=== PATIENT | female | born 1935 | race Caucasian/White ===

== ENCOUNTER 2019-09-12 08:41 | Observation (INO) | payer MEDICARE, OTHER ==
[2019-09-12] MEDS ORDERED: MORPHINE SULFATE 4 MG/ML SYRINGE IV STA (08:55)
--- NOTE | 2019-09-12 08:57 | ED ---
General Adult HPI - General Chief complaint: Fall Stated complaint: FALL Time Seen by Provider: 09/12/19 08:43 Source: patient, EMS Mode of arrival: EMS Limitations: no limitations - History of Present Illness Initial comments: Dictation was produced using [employer] dictation software. please excuse any grammatical, word or spelling errors. Chief Complaint: 84-year-old female brought in by EMS for back pain after fall. History of Present Illness: Patient is a 84-year-old female she has past medical history of diabetes and hypertension. Patient states she slipped on the wet ground while pulling up her underwear. Patient states she fell backwards landing onto her coccyx. Patient complains of significant lower back pain. Patient denies any radiation of symptoms. States the pain is severe and sharp. She states worse with movement. Patient has any history of osteoporosis or compression fractures. Denies any numbness and paresthesias to the legs. Patient localizes symptoms to her mid slightly to the right lower back. The ROS documented in this emergency department record has been reviewed and confirmed by me. Those systems with pertinent positive or negative responses have been documented in the HPI. All other systems are other negative and/or noncontributory. PHYSICAL EXAM: General Impression: Alert and oriented x3, acute distress secondary to pain HEENT: Normocephalic atraumatic, extra-ocular movements intact, pupils equal and reactive to light bilaterally, mucous membranes moist. Cardiovascular: Heart regular rate and rhythm, S1&S2 audible, no murmurs, rubs or gallops Chest: Lungs clear to auscultation bilaterally, no rhonchi, no wheeze, no rales Abdomen: Bowel sounds present, abdomen soft, non-tender, non-distended, no organomegaly Musculoskeletal: Pulses present and equal in all extremities, no peripheral edema, extremity is ranged without any, occasions. Tenderness to palpation over the lumbar spinal region. No pain about the cervical spine. Motor: no focal deficits noted Neurological: CN II-XII grossly intact, no focal motor or sensory deficits noted Skin: Intact with no visualized rashes Psych: Normal affect and mood ED course: 84-year-old female presents with back pain after fall. Upon arrival are within acceptable limits. Given patient's age there is concern for compression fractures pressures other acute traumatic musculoskeletal injury. Patient given IV analgesia. Patient adamantly denies striking her head. Patient is mentating appropriately. She is not on any blood thinners. At this point we will withhold CT imaging of the brain or neck at this time.After evaluation obtained. Laboratory markers are within acceptable limits. There is a potassium 5.35 with hemolysis. Patient's potassium likely normal. CT chest abdomen pelvis was obtained given that patient had dramatic fall. No acute traumatic injuries noted. Patient was trialed on ambulation here in the emergency department. Patient did not tolerate ambulating. She lives at home by herself and does not have a good social situation. Given patient's inability to ambulate without consultations and social situation we will admit patient with spine surgery consultation. EKG interpretation: Ventricular rate 63, normal sinus rhythm,. Interval 194, care is 82, QTC 425. No SC prolongation, no QTC prolongation, no ST or T-wave changes noted. Overall, this EKG is unremarkable - Related Data Home Medications Medication Instructions Recorded Confirmed Bisoprol/Hydrochlorothiazide 1 tab PO DAILY 09/12/19 09/12/19 [Bisoprolol-Hctz 10-6.25 mg Tab] Pioglitazone HCl 30 mg PO DAILY 09/12/19 09/12/19 Simvastatin 40 mg PO HS 09/12/19 09/12/19 amLODIPine BESYLATE/BENAZEPRIL 1 cap PO BID 09/12/19 09/12/19 [amLODIPine BESYLATE/BENAZEPRIL 5-20 MG] metFORMIN HCL 1,000 mg PO BID 09/12/19 09/12/19 Allergies Allergy/AdvReac Type Severity Reaction Status Date / Time Sulfa (Sulfonamide Allergy Swelling Verified 09/12/19 08:47 Antibiotics) Review of Systems ROS Statement: Those systems with pertinent positive or pertinent negative responses have been documented in the HPI. ROS Other: All systems not noted in ROS Statement are negative. Past Medical History Past Medical History: Diabetes Mellitus, Hypertension History of Any Multi-Drug Resistant Organisms: None Reported Past Psychological History: No Psychological Hx Reported Smoking Status: Former smoker Past Alcohol Use History: None Reported Past Drug Use History: None Reported General Exam Limitations: no limitations Course Vital Signs 09/12/19 09/12/19 08:47 11:19 Temperature 97.9 F Pulse Rate 58 L 64 Respiratory 18 18 Rate Blood Pressure 143/69 161/52 O2 Sat by Pulse 99 98 Oximetry Medical Decision Making - Lab Data Result diagrams: 09/12/19 09:24 09/12/19 09:24 Lab Results 09/12/19 09/12/19 09/12/19 Range/Units 09:24 09:24 09:24 WBC 9.4 (3.8-10.6) k/uL RBC 3.57 L (3.80-5.40) m/uL Hgb 10.5 L (11.4-16.0) gm/dL Hct 32.8 L (34.0-46.0) % MCV 91.6 (80.0-100.0) fL MCH 29.4 (25.0-35.0) pg MCHC 32.1 (31.0-37.0) g/dL RDW 13.9 (11.5-15.5) % Plt Count 314 (150-450) k/uL Neutrophils % 75 % Lymphocytes % 14 % Monocytes % 8 % Eosinophils % 1 % Basophils % 0 % Neutrophils # 7.0 (1.3-7.7) k/uL Lymphocytes # 1.3 (1.0-4.8) k/uL Monocytes # 0.7 (0-1.0) k/uL Eosinophils # 0.1 (0-0.7) k/uL Basophils # 0.0 (0-0.2) k/uL PT 10.0 (9.0-12.0) sec INR 0.9 (<1.2) APTT 23.5 (22.0-30.0) sec Sodium 136 L (137-145) mmol/L Potassium 5.3 H (3.5-5.1) mmol/L Chloride 106 (98-107) mmol/L Carbon Dioxide 21 L (22-30) mmol/L Anion Gap 9 mmol/L BUN 35 H (7-17) mg/dL Creatinine 1.08 H (0.52-1.04) mg/dL Est GFR (CKD-EPI)AfAm 55 (>60 ml/min/1.73 sqM) Est GFR (CKD-EPI)NonAf 48 (>60 ml/min/1.73 sqM) Glucose 185 H (74-99) mg/dL Calcium 9.4 (8.4-10.2) mg/dL Disposition Clinical Impression: Fall, Back strain Disposition: ADMITTED IP TO THIS HOSP Condition: Fair Referrals: None,Stated [Primary Care Provider] - 1-2 days Decision Time: 12:30
[2019-09-12 09:43] LABS: Basophils % (A) 0 %; Eosinophils # (A) 0.1 k/uL (0-0.7); Eosinophils % (A) 1 %; HCT 32.8 % (34.0-46.0); HGB 10.5 gm/dL (11.4-16.0); Lymphocytes # (A) 1.3 k/uL (1.0-4.8); Lymphocytes % (A) 14 %; MCH 29.4 pg (25.0-35.0); MCHC 32.1 g/dL (31.0-37.0); MCV 91.6 fL (80.0-100.0); Mean Platelet Volume 6.1; Monocytes # (A) 0.7 k/uL (0-1.0); Monocytes % (A) 8 %; Neutrophils % (A) 75 %; Platelet Count 314 k/uL (150-450); RBC 3.57 m/uL (3.80-5.40); RDW 13.9 % (11.5-15.5); WBC 9.4 k/uL (3.8-10.6)
[2019-09-12 09:53] LABS: INR 0.9 (<1.2); Partial Thromboplastin Time 23.5 sec (22.0-30.0)
[2019-09-12 10:11] LABS: Calcium 9.4 mg/dL (8.4-10.2); Potassium 5.3 mmol/L (3.5-5.1)
[2019-09-12] MEDS ORDERED: HYDROmorphone 0.5 MG/0.5 ML SYRINGE IVP STA (11:12)
--- NOTE | 2019-09-12 11:36 | CT ---
EXAMINATION TYPE: CT ChestAbdPelvis wo con DATE OF EXAM: 09/12/2019 INDICATION: Fall with back pain. COMPARISON: None CT DLP: 1228.8 mGycm CONTRAST: Performed without Oral Contrast, no intravenous contrast. TECHNIQUE: Axial images at 5 mm thick sections. Reconstructed images in the coronal plane. Delayed images through the kidneys. FINDINGS: CT CHEST: There is a 2.7 cm hypodensity extending from the inferior lateral right lobe thyroid into the superio r mediastinum. This could be further evaluated with ultrasound. No suspicious lung nodules or focal infiltrates are present. Some minimal compressive atelectasis med ially in the right lung base. No enlarged mediastinal or hilar adenopathy is evident. The ascending aorta diameter at the level of the main pulmonary artery is 3.7 cm. The main pulmonary artery diameter at the bifurcation is 2.8 cm. Coronary artery calcification is present. CT ABDOMEN: Liver: Normal Spleen: Normal Pancreas: Atrophic Adrenal glands: The adrenal glands are normal. Gallbladder: Normal Kidneys: No masses are evident. No hydronephrosis is present. No cysts are present. No renal stone s are evident. Aorta: Vascular calcification is within the aorta. Inferior vena cava: Normal. CT PELVIS: Scattered diverticuli are through the colon. No suspicious acute diverticulitis is evident. Studies w ithout oral contrast limiting bowel evaluation. Appendix: Normal as visualized. Urinary bladder: Compressive limited evaluation. Genitourinary structures: Uterus is not identified. No adnexal masses are evident. Osseous structures: No suspicious lytic or sclerotic lesions. Facet hypertrophy is present. Vertebral body heights are preserved. Disc heights appear preserved. Some minimal vacuum phenomenon is in the anterior mid thoracic levels. IMPRESSIONS: 1. Diverticulosis without acute diverticulitis. 2. No suspicious osseous abnormality.
--- NOTE | 2019-09-12 12:17 | XR ---
EXAMINATION TYPE: XR chest 1V portable DATE OF EXAM: 09/12/2019 COMPARISON: NONE HISTORY: Pain TECHNIQUE: Single frontal view of the chest is obtained. FINDINGS: Heart is prominent is atherosclerotic change aorta. No pneumothorax or overt failure. No c onsolidative process. No pleural effusion. Osteopenia of the osseous structures noted. Correlate for COPD. IMPRESSION: No definite acute process
[2019-09-12] MEDS ORDERED: Acetaminophen-Codeine 300-30mg TAB PO PRN (12:27)
[2019-09-12] MEDS ORDERED: NALOXONE 0.4 MG/ML 1 ML VIAL IV PRN (12:27)
[2019-09-12] MEDS ORDERED: KETOROLAC 30 MG/ML 1 ML VIAL IVP STA (14:25)
[2019-09-12] MEDS ORDERED: ONDANSETRON 4 MG/2 ML VIAL IVP STA (14:26)
[2019-09-12] MEDS ORDERED: ACETAMINOPHEN TAB 325 MG TAB PO PRN (15:25)
[2019-09-12] MEDS ORDERED: MORPHINE SULFATE 2 MG/ML SYRINGE IV PRN (15:25)
[2019-09-12] MEDS ORDERED: traMADol 50 MG TAB PO PRN (15:25)
--- NOTE | 2019-09-12 15:32 | P.HPIM ---
History of Present Illness H&P Date: 09/12/19 Chief Complaint: Lower back pain 84-year-old female with PMH of hypertension, diabetes mellitus, dyslipidemia presents to the ED after a fall. Patient states that she woke up around 7 AM, made her way to the washroom, slipped in the bathroom as there was water on the floor, twisted and landed on her buttocks. Her was able to hear the fall and attended to the patient. Patient was unable to get up largely due to the pain. EMS was called for further evaluation. Patient reports that typically she is able to ambulate without any assistive devices. She has no i ssues taking care of her ADLs and IADLs. She does report some difficulty with stairs but is able to walk upstairs while taking her time. She currently complains of right-sided lower back pain. Pain is stabbing in nature. Pain is 8 out of 10 in severity. Pain does not radiate. There are no alleviating or aggravating factors. Patient also reports nausea but denies any vomiting. She denies any headache, lower extremity edema, fever or chills, cough, chest pain, shortness of breath, changes in urination or bowel habits. No changes in appetite or weight. Patient denies any dizziness, numbness/weakness/tingling of the extremities. She denies any syncopal episodes. She denies any bladder or bowel incontinence. She denies any saddle anesthesia. In the ED, her vital signs were stable. CBC showed hemoglobin 10.5. CMP showed sodium 136, potassium 5.3, bicarbonate 21, BUN 35, creatinine 1.08. Chest x-ray was negative. CT of the chest abdomen and pelvis was performed which showed a 2.7 cm hypodensity in the right lobe of the thyroid. No fractures were seen. Patient is admitted for pain control and PT evaluation. Review of Systems Pertinent positives and negatives as discussed in HPI, a complete review of systems was performed and all other systems are negative. Past Medical History Past Medical History: Diabetes Mellitus, Hypertension History of Any Multi-Drug Resistant Organisms: None Reported Past Psychological History: No Psychological Hx Reported Smoking Status: Former smoker Past Alcohol Use History: None Reported Past Drug Use History: None Reported Medications and Allergies Home Medications Medication Instructions Recorded Confirmed Type Bisoprol/Hydrochlorothiazide 1 tab PO DAILY 09/12/19 09/12/19 History [Bisoprolol-Hctz 10-6.25 mg Tab] Pioglitazone HCl 30 mg PO DAILY 09/12/19 09/12/19 History Simvastatin 40 mg PO HS 09/12/19 09/12/19 History amLODIPine BESYLATE/BENAZEPRIL 1 cap PO BID 09/12/19 09/12/19 History [amLODIPine BESYLATE/BENAZEPRIL 5-20 MG] metFORMIN HCL 1,000 mg PO BID 09/12/19 09/12/19 History Allergies Allergy/AdvReac Type Severity Reaction Status Date / Time Sulfa (Sulfonamide Allergy Swelling Verified 09/12/19 08:47 Antibiotics) Physical Exam Vitals: Vital Signs Temp Pulse Resp BP Pulse Ox 09/12/19 11:19 64 18 161/52 98 09/12/19 08:47 97.9 F 58 L 18 143/69 99 Intake and Output 09/12/19 09/12/19 09/12/19 06:59 14:59 22:59 Other: Weight 117.934 kg General: [non toxic], [no distress], [appears at stated age] Derm: [warm], [dry] Head: [atraumatic], [normocephalic], [symmetric] Eyes: [EOMI], [no lid lag], [anicteric sclera] Mouth: [no lip lesion], [mucus membranes moist] Cardiovascular: [S1S2 reg], [no murmur], [positive DP pulse bilateral], Lungs: [CTA bilateral], [no rhonchi, no rales] , [no accessory muscle use] Abdominal: [soft], [ nontender to palpation], [no guarding], [no appreciable organomegaly] Ext: [no gross muscle atrophy], [2+ bilateral lower extremity edema], [no contractures], [tenderness to palpation of the right paraspinal muscles, no midline tenderness, SLR negative] Neuro: [ CN II-XI grossly intact], [no focal neuro deficits] Psych: [Alert], [oriented], [appropriate affect] Results CBC & Chem 7: 09/12/19 09:24 09/12/19 09:24 Labs: Abnormal Lab Results - Last 24 Hours (Table) 09/12/19 09/12/19 Range/Units 09:24 09:24 RBC 3.57 L (3.80-5.40) m/uL Hgb 10.5 L (11.4-16.0) gm/dL Hct 32.8 L (34.0-46.0) % Sodium 136 L (137-145) mmol/L Potassium 5.3 H (3.5-5.1) mmol/L Carbon Dioxide 21 L (22-30) mmol/L BUN 35 H (7-17) mg/dL Creatinine 1.08 H (0.52-1.04) mg/dL Glucose 185 H (74-99) mg/dL Assessment and Plan Assessment: Assessment and plan Intractable back pain due to mechanical fall Hyperkalemia Acute kidney injury Diabetes mellitus with hyperglycemia Obesity with BMI 50.8 Chronic conditions: Hypertension, dyslipidemia CT shows no acute fracture. Plans: Pain control with Tylenol, tramadol, morphine as needed for severe pain. Fall precautions. Follow PT and OT recommendations. Follow orthopedic recommendations. Follow pain management recommendations. Potassium 5.3, heparinized plasma specimen. EKG shows no T-wave changes. Plans: Repeat BMP in the morning. BUN 35, creatinine 1.08. Likely due to dehydration. Plans: Encourage hydration by mouth. Will discontinue Toradol. Avoid nephrotoxins. Repeat BMP in the morning. Fthvp-sm-poly glucose 185. Plans: Discontinue oral hypoglycemics. Insulin sliding scale. Regular Accu-Cheks. Hypoglycemic precautions. Contributing to back pain. Plans: Structured weight loss program. DVT prophylaxis: [SCD boots] Discussed with: [Patient and family] Anticipated discharge: [1-2 days] Anticipated discharge place: [Home] A total of [45] minutes was spent on the care of this complex patient more than 50% of the time was spent in counseling and care coordination. Patient names her Don decision-maker in the case that she can't make decisions for herself. Patient reiterates wanting to remain full code at this time.
[2019-09-12 20:31] LABS: Glucose,Whole Blood 175 mg/dL (75-99)
[2019-09-12] MEDS: SODIUM CHLORIDE 0.9% 1,000 ML IV SCH (20:45)
[2019-09-12] MEDS ORDERED: metFORMIN 500 MG TAB PO SCH (21:00)
[2019-09-12] MEDS: INSULIN ASPART (NovoLOG) 100 UNIT/ML VIAL SQ SCH ×2 (21:00→21:27)
[2019-09-12] MEDS: LISINOPRIL 20 MG TAB PO SCH (21:02)
[2019-09-12] MEDS: ATORVASTATIN 20 MG TAB PO SCH (21:03)
[2019-09-12] MEDS: amLODIPine 5 MG TAB PO SCH (21:03)
[2019-09-13 01:58] LABS: Glucose,Whole Blood 111 mg/dL (75-99)
[2019-09-13 07:21] LABS: Glucose,Whole Blood 125 mg/dL (75-99)
[2019-09-13] MEDS: INSULIN ASPART (NovoLOG) 100 UNIT/ML VIAL SQ SCH ×4 (08:09→20:55)
[2019-09-13] MEDS: BISOPROLOL-HCTZ 10-6.25 MG 1 EACH TAB PO SCH (08:45)
[2019-09-13] MEDS: LISINOPRIL 20 MG TAB PO SCH ×2 (08:45→21:02)
[2019-09-13] MEDS: ASPIRIN 81 MG PO SCH (08:45)
[2019-09-13] MEDS: amLODIPine 5 MG TAB PO SCH ×2 (08:45→21:01)
--- NOTE | 2019-09-13 08:58 | P.CNOR ---
History of Present Illness - [facility] Consult date: 09/13/19 Requesting physician: Fidel Corral Consult reason: low back pain (Acute low back pain status post fall) History of present illness: Patient is very pleasant 84-year-old female who is seen and examined at bedside for acute intractable low back pain status post fall. She was at home yesterday getting dressed in the bathroom when she slipped twisting and landing on her buttocks. Since that time she has had increased low back pain. She denies any lower extremity weakness and radiculopathy bilaterally. At the time of her fall she was unable to get off the floor due to her pain. EMS was called and she was transferred to the hospital. CT imaging did not show evidence of fracture or acute change in regards to her lumbar spine. Consultation was placed with orthopedic spine as well as pain management. Patient states at the bedside she does not feel she needs any sort of surgical intervention at her lumbar spine but would like treatment with pain management as well as physical therapy. She does have a past medical history which includes diabetes mellitus, hypertension, and obesity. Past Medical History Past Medical History: Diabetes Mellitus, Hypertension History of Any Multi-Drug Resistant Organisms: None Reported Past Psychological History: No Psychological Hx Reported Smoking Status: Former smoker Past Alcohol Use History: None Reported Past Drug Use History: None Reported Medications and Allergies Home Medications Medication Instructions Recorded Confirmed Type Bisoprol/Hydrochlorothiazide 1 tab PO DAILY 09/12/19 09/12/19 History [Bisoprolol-Hctz 10-6.25 mg Tab] Pioglitazone HCl 30 mg PO DAILY 09/12/19 09/12/19 History Simvastatin 40 mg PO HS 09/12/19 09/12/19 History amLODIPine BESYLATE/BENAZEPRIL 1 cap PO BID 09/12/19 09/12/19 History [amLODIPine BESYLATE/BENAZEPRIL 5-20 MG] metFORMIN HCL 1,000 mg PO BID 09/12/19 09/12/19 History Allergies Allergy/AdvReac Type Severity Reaction Status Date / Time Sulfa (Sulfonamide Allergy Swelling Verified 09/12/19 08:47 Antibiotics) Physical Examination Physical exam: Patient is awake, alert, and oriented 3 Vital signs stable Good chest excursion with deep inspiration and expiration Abdomen soft nontender Examination of lumbar spine reveals skin is intact with no abrasions, lacerations, or bruises; no erythema, purulence or signs of infection Pain with palpation over the lumbar paraspinal muscles bilaterally Dorsiflexion, plantarflexion, and extensor hallucis longus positive sustained bilaterally Lower extremity strength 5/5 bilaterally Patient is able to lift her legs off the bed independently but somewhat slowly No lower extremity hyperreflexia bilaterally No signs or symptoms of DVT; no calf pain No pain with internal and external rotation of the hips bilaterally Neurovascularly intact Results Pertinent studies: CT of the chest/abdomen/pelvis taken on 09/12/2019: No suspicious osseous abnormality; no evidence of vertebral body compression fracture deformity; inte rvertebral disc heights appear to be well preserved; facet hypertrophy; overall alignment is adequately maintained; no obvious spondylolisthesis; diverticulosis without acute diverticulitis - Labs Labs: Abnormal Lab Results - Last 24 Hours (Table) 09/12/19 09/12/19 09/12/19 Range/Units 09:24 09:24 20:30 RBC 3.57 L (3.80-5.40) m/uL Hgb 10.5 L (11.4-16.0) gm/dL Hct 32.8 L (34.0-46.0) % Sodium 136 L (137-145) mmol/L Potassium 5.3 H (3.5-5.1) mmol/L Carbon Dioxide 21 L (22-30) mmol/L BUN 35 H (7-17) mg/dL Creatinine 1.08 H (0.52-1.04) mg/dL Glucose 185 H (74-99) mg/dL POC Glucose (mg/dL) 175 H (75-99) mg/dL 09/13/19 09/13/19 Range/Units 01:56 07:19 RBC (3.80-5.40) m/uL Hgb (11.4-16.0) gm/dL Hct (34.0-46.0) % Sodium (137-145) mmol/L Potassium (3.5-5.1) mmol/L Carbon Dioxide (22-30) mmol/L BUN (7-17) mg/dL Creatinine (0.52-1.04) mg/dL Glucose (74-99) mg/dL POC Glucose (mg/dL) 111 H 125 H (75-99) mg/dL H & H 09/12/19 Range/Units 09:24 Hgb 10.5 L (11.4-16.0) gm/dL Hct 32.8 L (34.0-46.0) % Coagulation 09/12/19 Range/Units 09:24 INR 0.9 (<1.2) Result Diagrams: 09/12/19 09:24 09/12/19 09:24 Assessment and Plan Assessment: Assessment: Intractable low back pain status post fall Lumbar strain Difficulty with mobility and ambulation due to pain Lumbar facet arthropathy History of diabetes mellitus, hypertension, and obesity (1) Intractable low back pain Current Visit: Yes Status: Acute Code(s): M54.5 - LOW BACK PAIN SNOMED Code(s): 56667273758807203 (2) Status post fall Current Visit: Yes Status: Acute Code(s): Z91.81 - HISTORY OF FALLING SNOMED Code(s): 031056410 (3) Lumbar strain Current Visit: Yes Status: Acute Code(s): S39.012A - STRAIN OF MUSCLE, FASCIA AND TENDON OF LOWER BACK, INIT SNOMED Code(s): 543451270 (4) Lumbar facet arthropathy Current Visit: Yes Status: Acute Code(s): M47.816 - SPONDYLOSIS W/O MYELOPATHY OR RADICULOPATHY, LUMBAR REGION SNOMED Code(s): 013066414 (5) History of diabetes mellitus Current Visit: Yes Status: Acute Code(s): Z86.39 - PERSONAL HISTORY OF ENDO, NUTRITIONAL AND METABOLIC DISEASE SNOMED Code(s): 642363515 (6) History of hypertension Current Visit: Yes Status: Acute Code(s): Z86.79 - PERSONAL HISTORY OF OTHER DISEASES OF THE CIRCULATORY SYSTEM SNOMED Code(s): 945540918 (7) Obesity Current Visit: Yes Status: Acute Code(s): E66.9 - OBESITY, UNSPECIFIED SNOMED Code(s): 456075492 Plan: Plan: 1. After physical examination the patient, reviewing imaging, and further discussion with the patient, we will currently planned to continue conservative treatment at this time. Reviewing the imaging does not show evidence of fracture or obvious significant findings. Patient denies any lower extremity weakness radiculopathy bilaterally. She is eating and voiding without difficulty. She is not experiencing any abdominal pain. She experienced a twisting motion at the time of fall landing on her buttocks and has had increased low back pain since that time. I do feel she could benefit with physical therapy as well as with pain management. Consultation has been placed with pain management. At this time are not currently planning for any surgical intervention at her lumbar spine. Patient states she would like to exhaust all conservative treatment options and is not wish to have any surgical intervention at her spine. We discussed we do not currently feels there are any indications which surgical intervention would provide any significant improvement of her symptoms. We recommended conservative treatment. At this time, patient will be cleared for discharge from an orthopedic spine standpoint. We will plan have her follow up in outpatient setting on as-needed basis with Cornelio Jamison PA-C or Dr. Miguel Navarro at [facility]. 2. Patient will continue to be seen and examined other medical providers including medicine 3. Patient may work with physical therapy to increase mobility and ambulation 4. Patient currently waiting for consultation with pain management. Time with Patient: Greater than 30 (Including obtaining history, physical examination, reviewing of imaging, and dictation.)
[2019-09-13] MEDS ORDERED: PIOGLITAZONE 30 MG TAB PO SCH (09:00)
[2019-09-13 11:42] LABS: Glucose,Whole Blood 164 mg/dL (75-99)
--- NOTE | 2019-09-13 13:29 | P.PN ---
Subjective Progress Note Date: 09/13/19 Principal diagnosis: Back pain Patient was seen and examined. No acute events overnight. Patient continues to report right-sided back pain without any radiation. Pain is 6 out of 10 in severity. Patient states tramadol has not helped her. States that she was able to ambulate with PT and OT down the hallway into the washroom with the aid of a walker but continues to have fears of falling down. States that her is elderly and will be unable to help. She denies any chest, shortness of breath or palpitations. No nausea or vomiting. No fever or chills. Family at bedside. Objective - Vital Signs Vital signs: Vital Signs Temp 97.8 F 09/13/19 13:00 Pulse 59 L 09/13/19 13:00 Resp 16 09/13/19 13:00 BP 158/70 09/13/19 13:00 Pulse Ox 92 L 09/13/19 04:31 Intake & Output 09/12/19 09/13/19 09/13/19 18:59 06:59 18:59 Intake Total 1010 Balance 1010 Weight 117.934 kg Intake: Intake, IV Titration 0 Amount Sodium Chloride 0.9% 1, 0 000 ml @ 20 mls/hr IV . Q24H [facility] Rx#:[id number] Oral 1010 Other: Voiding Method Bedpan Bedpan # Voids 1 1 - Exam General: [non toxic], [no distress], [appears at stated age] Derm: [warm], [dry] Head: [atraumatic], [normocephalic], [symmetric] Eyes: [EOMI], [no lid lag], [anicteric sclera] Mouth: [no lip lesion], [mucus membranes moist] Cardiovascular: [S1S2 reg], [no murmur], [positive DP pulse bilateral], Lungs: [CTA bilateral], [no rhonchi, no rales] , [no accessory muscle use] Abdominal: [soft], [ nontender to palpation], [no guarding], [no appreciable organomegaly] Ext: [no gross muscle atrophy], [2+ bilateral lower extremity edema], [no contractures], [tenderness to palpation of the right paraspinal muscles, no midline tenderness, SLR negative] Neuro: [ CN II-XI grossly intact], [no focal neuro deficits] Psych: [Alert], [oriented], [appropriate affect] - Labs CBC & Chem 7: 09/12/19 09:24 09/12/19 09:24 Labs: Abnormal Lab Results - Last 24 Hours (Table) 09/12/19 09/13/19 09/13/19 Range/Units 20:30 01:56 07:19 POC Glucose (mg/dL) 175 H 111 H 125 H (75-99) mg/dL 09/13/19 Range/Units 11:30 POC Glucose (mg/dL) 164 H (75-99) mg/dL Assessment and Plan Assessment: Assessment and plan Intractable back pain due to mechanical fall Hyperkalemia Acute kidney injury Diabetes mellitus with hyperglycemia Obesity with BMI 50.8 Chronic conditions: Hypertension, dyslipidemia CT shows no acute fracture. Orthopedic surgery recommends no surgical intervention. Plans: Pain control with [place] as needed since tramadol has not helped. Fall precautions. Follow PT and OT recommendations. Follow pain management recommendations. Potassium 5.3, heparinized plasma specimen. EKG shows no T-wave changes. Plans: Repeat BMP in the morning. BUN 35, creatinine 1.08. Likely due to dehydration. Plans: Encourage hydration by mouth. Will discontinue Toradol. Avoid nephrotoxins. Repeat BMP in the morning. [id number]-[id number] glucose 164. Plans: Discontinue oral hypoglycemics. Insulin sliding scale. Regular Accu-Cheks. Hypoglycemic precautions. Contributing to back pain. Plans: Structured weight loss program. [Patient continues to have back pain that is uncontrolled with difficulty ambulating. Her medication has been changed from tramadol to [place]. We will see if that helps her. Likely DC today or tomorrow depending on her progress.]
[2019-09-13 15:24] LABS: Calcium 9.6 mg/dL (8.4-10.2); Potassium 5.5 mmol/L (3.5-5.1)
[2019-09-13 18:07] LABS: Glucose,Whole Blood 161 mg/dL (75-99)
[2019-09-13] MEDS: SODIUM CHLORIDE 0.9% 1,000 ML IV SCH (19:18)
[2019-09-13] MEDS ORDERED: ONDANSETRON 4 MG/2 ML VIAL IVP PRN (20:11)
[2019-09-13 20:22] LABS: Glucose,Whole Blood 143 mg/dL (75-99)
[2019-09-13] MEDS: HYDROcodone/APAP 5-325MG 1 EACH TAB PO PRN (21:01)
[2019-09-13] MEDS: ATORVASTATIN 20 MG TAB PO SCH (21:01)
[2019-09-14] MEDS: HYDROcodone/APAP 5-325MG 1 EACH TAB PO PRN ×2 (02:20→15:52)
[2019-09-14 02:41] LABS: Glucose,Whole Blood 144 mg/dL (75-99)
[2019-09-14 05:34] VITALS: BP 177/72; PULSE 60; RESP 16; TEMP 97.1
[2019-09-14 07:59] LABS: Glucose,Whole Blood 140 mg/dL (75-99)
[2019-09-14] MEDS: INSULIN ASPART (NovoLOG) 100 UNIT/ML VIAL SQ SCH ×2 (08:11→12:55)
[2019-09-14] MEDS: LISINOPRIL 20 MG TAB PO SCH (08:11)
[2019-09-14] MEDS: BISOPROLOL-HCTZ 10-6.25 MG 1 EACH TAB PO SCH (08:11)
[2019-09-14] MEDS: amLODIPine 5 MG TAB PO SCH (08:11)
[2019-09-14] MEDS: ASPIRIN 81 MG PO SCH (08:12)
[2019-09-14] MEDS ORDERED: INSULIN REGULAR 100 UNIT/ML VIAL IV ONE (08:22)
[2019-09-14] MEDS ORDERED: DEXTROSE 10 % IN WATER 250 ML IV ONE (08:28)
--- NOTE | 2019-09-14 08:48 | P.DS ---
Providers Date of admission: 09/12/19 12:27 Expected date of discharge: 09/14/19 Attending physician: Jessy Santos MD Consults: 09/12/19 12:28 Consult Physician Routine Consulting Provider: Shu Navarro Consult Reason/Comments: back pain Do you want consulting provider notified?: Yes 09/12/19 15:24 Consult Physician Routine Consulting Provider: Jose Hoffmann Consult Reason/Comments: back pain Do you want consulting provider notified?: Yes Primary care physician: Stated None Hospital Course: 84-year-old female with PMH of hypertension, diabetes mellitus, dyslipidemia presents to the ED after a fall. Patient states that she woke up around 7 AM, made her way to the washroom, slipped in the bathroom as there was water on the floor, twisted and landed on her buttocks. Her was able to hear the fall and attended to the patient. Patient was unable to get up largely due to the pain. EMS was called for further evaluation. Patient reports that ty pically she is able to ambulate without any assistive devices. She has no issues taking care of her ADLs and IADLs. She does report some difficulty with stairs but is able to walk upstairs while taking her time. She currently complains of right-sided lower back pain. Pain is stabbing in nature. Pain is 8 out of 10 in severity. Pain does not radiate. There are no alleviating or aggravating factors. Patient also reports nausea but denies any vomiting. She denies any headache, lower extremity edema, fever or chills, cough, chest pain, shortness of breath, changes in urination or bowel habits. No changes in appetite or weight. Patient denies any dizziness, numbness/weakness/tingling of the extremities. She denies any syncopal episodes. She denies any bladder or bowel incontinence. She denies any saddle anesthesia. In the ED, her vital signs were stable. CBC showed hemoglobin 10.5. CMP showed sodium 136, potassium 5.3, bicarbonate 21, BUN 35, creatinine 1.08. Chest x-ray was negative. CT of the chest abdomen and pelvis was performed which showed a 2.7 cm hypodensity in the right lobe of the thyroid. No fractures were seen. Patient is admitted for pain control and PT evaluation. Patient was evaluated by orthopedic surgery and no surgical intervention was recommended. Pain management was consulted but did not see the patient during her hospitalization. Her pain was initially attempted to be controlled with tramadol but patient continued to feel pain so medications were switched to [place]. PT was consulted and worked with the patient during her hospitalization. She was given a prescription for a rolling walker. Patient was noted to have a persistently elevated potassium of 5.3 on admission. Repeat BMP showed potassium of 5.5. She was given D 25 with insulin to bring down her potassium. Repeat BMP was drawn prior to discharge to show normalized potassium. Patient was seen and examined. No acute events overnight. Patient continues to report right-sided back pain, described as sore in nature, 5 out of 10 in severity. States that [place] has helped her. She has been ambulating to the washroom in the hallways with the aid of a rolling walker. Patient states that she is comfortable going home today. She denies any chest pain, shortness of breath or palpitations. No nausea or vomiting. No fever or chills. She denies any bladder or bowel incontinence. No saddle anesthesia. General: [non toxic], [no distress], [appears at stated age] Derm: [warm], [dry] Head: [atraumatic], [normocephalic], [symmetric] Eyes: [EOMI], [no lid lag], [anicteric sclera] Mouth: [no lip lesion], [mucus membranes moist] Cardiovascular: [S1S2 reg], [no murmur], [positive DP pulse bilateral], Lungs: [CTA bilateral], [no rhonchi, no rales] , [no accessory muscle use] Abdominal: [soft], [ nontender to palpation], [no guarding], [no appreciable organomegaly] Ext: [no gross muscle atrophy], [2+ bilateral lower extremity edema], [no con tractures], [tenderness to palpation of the right paraspinal muscles, no midline tenderness, improved] Neuro: [no focal neuro deficits] Psych: [Alert], [oriented], [appropriate affect] Assessment and plan Intractable back pain due to mechanical fall Hyperkalemia Acute kidney injury Diabetes mellitus with hyperglycemia Hypertension Obesity with BMI 50.8 Chronic conditions: dyslipidemia CT shows no acute fracture. Orthopedic surgery recommends no surgical intervention. Plans: Pain control with [place]. Fall precautions. Follow PT and OT recommendations. Follow pain management recommendations. Potassium 5.5. EKG shows no T-wave changes. Plans: 10 units of insulin IV along with D 10. Follow EKG. Repeat BMP to show normal potassium prior to discharge. Will discontinue SIMBA inhibitor, to be resumed with PCP. BUN 35-36, creatinine 1.08-1.32. Likely due to dehydration. Plans: Encourage hydration by mouth. Will discontinue Toradol. Avoid nephrotoxins. Repeat BMP in the morning. [id number] glucose 140. Plans: Discontinue oral hypoglycemics. Insulin sliding scale. Regular Accu-Cheks. Hypoglycemic precautions. Contributing to back pain. Plans: Structured weight loss program. BP 177/72. Plans: Continue amlodipine and bisoprolol. Continue hydrochlorothiazide. Discontinue lisinopril due to hyperkalemia. [Patient's symptoms have improved since admission. Patient appears comfortable going home with aid of a rolling walker. Prescription for rolling walker needs to be signed. Patient is being treated for hyperkalemia repeat BMP in the afternoon. Discharge patient home if potassium normal. Repeat BMP in 3 days. ] Pertinent Studies: CT chest abdomen and pelvis, chest x-ray Patient Condition at Discharge: Stable Plan - Discharge Summary Discharge Rx Participant: Yes New Discharge Prescriptions: New Aspirin 81 mg PO DAILY #30 chew HYDROcodone/APAP 5-325MG [[place] 5-325] 1 each PO Q4HR PRN #18 tab PRN Reason: Pain amLODIPine [Norvasc] 5 mg PO BID #60 tab Continue Bisoprol/Hydrochlorothiazide [Bisoprolol-Hctz 10-6.25 mg Tab] 1 tab PO DAILY metFORMIN HCL 1,000 mg PO BID Simvastatin 40 mg PO HS Pioglitazone HCl 30 mg PO DAILY Discontinued amLODIPine BESYLATE/BENAZEPRIL [amLODIPine BESYLATE/BENAZEPRIL 5-20 MG] 1 cap PO BID Discharge Medication List Bisoprol/Hydrochlorothiazide [Bisoprolol-Hctz 10-6.25 mg Tab] 1 tab PO DAILY 09/12/19 [History] Pioglitazone HCl 30 mg PO DAILY 09/12/19 [History] Simvastatin 40 mg PO HS 09/12/19 [History] metFORMIN HCL 1,000 mg PO BID 09/12/19 [History] Aspirin 81 mg PO DAILY #30 chew 09/14/19 [Rx] HYDROcodone/APAP 5-325MG [[place] 5-325] 1 each PO Q4HR PRN #18 tab 09/14/19 [Rx] amLODIPine [Norvasc] 5 mg PO BID #60 tab 09/14/19 [Rx] Follow up Appointment(s)/Referral(s): Cornelio Jamison, PAC [PHYSICIAN CHAIN TENDER] - As Needed (Patient may follow-up with Cornelio Jamison PA-C or Dr. Miguel Navarro at [facility] on an as-needed basis following discharge. ) None,Stated [Primary Care Provider] - 1-2 days Ambulatory/Diagnostic Orders: Basic Metabolic Panel [LAB.AMB] Time Frame: 3 Days, Location: None Selected Activity/Diet/Wound Care/Special Instructions: Diet: Low potassium Follow-up PCP within 3 days of discharge. Repeat BMP within 3 days of discharge. Follow-up results with PCP. Take all medications as advised. Discharge Disposition: HOME SELF-CARE
[2019-09-14] MEDS ORDERED: DEXTROSE 10 % IN WATER 250 ML IV STA (10:02)
[2019-09-14 10:41] LABS: Glucose,Whole Blood 199 mg/dL (75-99)
[2019-09-14 12:19] LABS: Glucose,Whole Blood 138 mg/dL (75-99)
== END 2019-09-14 16:30 | disposition home or self-care (01) ==
LOC: EC 08:41 → 3NMEDONC 12:27
PROVIDERS: ADMIT Family Medicine; ATTEND Family Medicine
DX: M54.5 Low back pain (principal); N17.9 Acute kidney failure, unspecified; E87.5 Hyperkalemia; E11.65 Type 2 diabetes mellitus with hyperglycemia; M47.816 Spondylosis without myelopathy or radiculopathy, lumbar region; I10 Essential (primary) hypertension; K57.30 Diverticulosis of large intestine without perforation or abscess without bleeding; E78.5 Hyperlipidemia, unspecified; R11.0 Nausea; Z68.43 Body mass index [BMI] 50.0-59.9, adult; E66.9 Obesity, unspecified; W01.0XXA Fall on same level from slipping, tripping and stumbling without subsequent striking against object, initial encounter; Y92.002 Bathroom of unspecified non-institutional (private) residence as the place of occurrence of the external cause; Z79.84 Long term (current) use of oral hypoglycemic drugs; Z79.899 Other long term (current) drug therapy; Z88.2 Allergy status to sulfonamides; Z87.891 Personal history of nicotine dependence
CPT/HCPCS: 96376; 96374; 96375; 99285; 36415; 93005 ×2; 97116; 97530; 97162; 97166; 80048 ×2; 84132; 85025; 85610; 85730; 71045; 71250; 74176; G0378 ×3; J2270 ×2; J2405 ×2; J1885; J1170

== ENCOUNTER 2019-09-24 11:36 | Emergency (ER) | payer MEDICARE ==
[2019-09-24 11:51] VITALS: BP 157/78; PULSE 60; RESP 18; TEMP 98.7
[2019-09-24] MEDS ORDERED: CLINDAMYCIN 150 MG CAP PO STA (12:16)
--- NOTE | 2019-09-24 12:27 | ED ---
General Adult HPI - General Chief complaint: Skin/Abscess/Foreign Body Stated complaint: LEFT ARM PROBLEM, POSS INFECTION Time Seen by Provider: 09/24/19 11:44 Source: patient, family, RN notes reviewed Mode of arrival: wheelchair Limitations: no limitations - History of Present Illness Initial comments: Patient is a pleasant 84-year-old female presenting to the emergency department with family with concerns for redness and discomfort left antecubital region. Patient did have IV placed there around 10 days ago. Less than a week ago patient did have some redness and swelling in that area. Discomfort has increased and is now moderate. Discomfort is not present at rest and only present with flexion at the elbow. Discomfort and redness is limited antecubital fossa. No discomfort of the joint itself. No fevers. No arm swelling around redness. No history of similar symptoms previously. Patient has noticed a little bit of drainage. - Related Data Home Medications Medication Instructions Recorded Confirmed Bisoprol/Hydrochlorothiazide 1 tab PO DAILY 09/12/19 09/24/19 [Bisoprolol-Hctz 10-6.25 mg Tab] Pioglitazone HCl 30 mg PO DAILY 09/12/19 09/24/19 Simvastatin 40 mg PO HS 09/12/19 09/24/19 metFORMIN HCL 1,000 mg PO BID 09/12/19 09/24/19 HYDROcodone/APAP 5-325MG [[place] 1 tab PO Q4HR PRN 09/24/19 09/24/19 5-325] Previous Rx's Medication Instructions Recorded Aspirin 81 mg PO DAILY #30 chew 09/14/19 amLODIPine [Norvasc] 5 mg PO BID #60 tab 09/14/19 Clindamycin HCl 300 mg PO TID #30 cap 09/24/19 Allergies Allergy/AdvReac Type Severity Reaction Status Date / Time Sulfa (Sulfonamide Allergy Swelling Verified 09/24/19 12:00 Antibiotics) Review of Systems ROS Statement: Those systems with pertinent positive or pertinent negative responses have been documented in the HPI. ROS Other: All systems not noted in ROS Statement are negative. Constitutional: Denies: fever, chills Eyes: Denies: eye pain ENT: Denies: ear pain Respiratory: Denies: cough Cardiovascular: Denies: chest pain Endocrine: Denies: fatigue Gastrointestinal: Denies: abdominal pain Genitourinary: Denies: dysuria Musculoskeletal: Denies: back pain Skin: Reports: as per HPI, rash Neurological: Denies: weakness Past Medical History Past Medical History: Diabetes Mellitus, Hypertension History of Any Multi-Drug Resistant Organisms: None Reported Past Psychological History: No Psychological Hx Reported Smoking Status: Former smoker Past Alcohol Use History: None Reported Past Drug Use History: None Reported General Exam Limitations: no limitations General appearance: alert, in no apparent distress Head exam: Present: normocephalic Eye exam: Present: normal appearance Respiratory exam: Present: normal lung sounds bilaterally Cardiovascular Exam: Present: regular rate, normal rhythm GI/Abdominal exam: Present: soft. Absent: tenderness Extremities exam: Present: other (left anticubital fossa with erythema and mild swelling and mild tenderness. There is central area of minimal blistering that was opened up with trace amount of pus. Full range of motion of the arm. No involvement of the joint. No swelling of the upper or lower arm. No upper or lower arm tenderness. Pulses intact.) Neurological exam: Present: alert Psychiatric exam: Present: normal affect, normal mood Skin exam: Present: erythema (Left antecubital fossa approximately 4 x 5 cm) Course Vital Signs 09/24/19 11:48 Temperature 98.7 F Pulse Rate 60 Respiratory 18 Rate Blood Pressure 157/78 O2 Sat by Pulse 98 Oximetry Disposition Clinical Impression: Cellulitis Disposition: HOME SELF-CARE Condition: Stable Instructions (If sedation given, give patient instructions): Cellulitis (ED) Additional Instructions: Please follow-up with primary care physician before the end of the week. Return for fever, increased redness, increased swelling, increased pain, worsening symptoms or any other concerns. Prescription has been sent to [facility] on . Prescriptions: Clindamycin HCl 300 mg PO TID #30 cap Is patient prescribed a controlled substance at d/c from ED?: No Referrals: Hawk Claros MD [STAFF PHYSICIAN] - 1-2 days Time of Disposition: 12:30
== END 2019-09-24 12:55 | disposition home or self-care (01) ==
LOC: EC 11:36
DX: L03.114 Cellulitis of left upper limb (principal); S60.522A Blister (nonthermal) of left hand, initial encounter; E11.9 Type 2 diabetes mellitus without complications; I10 Essential (primary) hypertension; Z88.2 Allergy status to sulfonamides; Z79.84 Long term (current) use of oral hypoglycemic drugs; Z79.899 Other long term (current) drug therapy; Z87.891 Personal history of nicotine dependence; X58.XXXA Exposure to other specified factors, initial encounter
CPT/HCPCS: 87070; 87205; 99283

== ENCOUNTER 2023-11-20 03:52 | Inpatient (IN) | payer MEDICARE ==
[2023-11-20] MEDS ORDERED: MORPHINE SULFATE 4 MG/ML SYRINGE IV STA (04:11)
[2023-11-20] MEDS ORDERED: NITROGLYCERIN OINT 1 INCH/GM PACKET TOPICAL STA (04:11)
[2023-11-20 04:12] LABS: Basophils % (A) 0 %; Eosinophils # (A) 0.1 k/uL (0-0.7); Eosinophils % (A) 1 %; HCT 39.2 % (34.0-46.0); HGB 12.3 gm/dL (11.4-16.0); Hypochromasia Slight; Lymphocytes # (A) 1.5 k/uL (1.0-4.8); Lymphocytes % (A) 15 %; MCH 28.7 pg (25.0-35.0); MCHC 31.4 g/dL (31.0-37.0); MCV 91.3 fL (80.0-100.0); Mean Platelet Volume 7.3; Monocytes # (A) 0.5 k/uL (0-1.0); Monocytes % (A) 5 %; Neutrophils # (A) 7.6 k/uL (1.3-7.7); Neutrophils % (A) 77 %; Platelet Count 334 k/uL (150-450); RBC 4.29 m/uL (3.80-5.40); RDW 14.2 % (11.5-15.5); WBC 9.9 k/uL (3.8-10.6)
--- NOTE | 2023-11-20 04:15 | ED ---
SOB HPI - General Chief Complaint: Shortness of Breath Stated Complaint: JOSÉ MANUEL Source: patient, EMS Mode of arrival: EMS Limitations: physical limitation (Fairly dyspneic) - History of Present Illness Initial Comments: This patient is an 88-year-old woman brought in to have evaluation for shortness of breath. The patient had not been feeling well for a day and then became acutely short of breath during the night. EMS was called. Patient had not noted fevers. No chest pain. No cough. The patient does have bilateral edema which is slightly increased from her baseline. No change in urination or bowel movements. History is limited as patient moderately dyspneic MD Complaint: shortness of breath -: days(s) Severity scale (1-10): 0 Consistency: constant Improves With: oxygen, upright position Worsens With: lying flat Treatments Prior to Arrival: oxygen - Related Data Home Oxygen Therapy: No Home Medications Medication Instructions Recorded Confirmed Simvastatin 40 mg PO DAILY 09/12/19 12/01/23 metFORMIN HCL [Glucophage] 1,000 mg PO BID 09/12/19 12/01/23 Ergocalciferol (Vitamin D2) 1,250 mcg PO QMONTHLY 11/20/23 12/01/23 [Drisdol (50,000 Iu)] Previous Rx's Medication Instructions Recorded Aspirin 81 mg PO DAILY #30 chew 09/14/19 Dapagliflozin Propanediol [Farxiga] 10 mg PO DAILY #30 tab 11/24/23 Furosemide [Lasix] 40 mg PO DAILY #30 tab 11/24/23 Isosorbide Mononitrate ER [Imdur] 30 mg PO DAILY #30 tab 11/24/23 Spironolactone [Aldactone] 25 mg PO DAILY #30 tab 11/24/23 Insulin Detemir (Levemir) [Levemir] 10 unit SQ DAILY@0700 #30 each 11/28/23 carvediloL [Coreg*] 25 mg PO BID-W/MEALS #60 tab 11/28/23 hydrALAZINE HCL [Apresoline] 100 mg PO TID #90 tab 11/28/23 polyethylene glycoL 3350 [Miralax] 17 gm PO DAILY #30 packet 11/28/23 Nystatin 100,000 Unit/gm Powd 1 applic TOPICAL BID #1 dispenser 12/04/23 [Mycostatin Powder] PARoxetine [Paxil] 10 mg PO DAILY #30 tab 12/04/23 busPIRone HCl [Buspar] 5 mg PO TID PRN #30 tab 12/04/23 Allergies Allergy/AdvReac Type Severity Reaction Status Date / Time Sulfa (Sulfonamide Allergy Swelling Verified 12/01/23 07:42 Antibiotics) Review of Systems ROS Statement: Those systems with pertinent positive or pertinent negative responses have been documented in the HPI. ROS Other: All systems not noted in ROS Statement are negative. Constitutional: Denies: fever, chills, weakness ENT: Denies: congestion Respiratory: Reports: dyspnea. Denies: cough, wheezes, hemoptysis Cardiovascular: Reports: orthopnea, edema. Denies: chest pain, palpitations, syncope Gastrointestinal: Denies: abdominal pain, vomiting, diarrhea Genitourinary: Denies: dysuria, hematuria Musculoskeletal: Denies: back pain Skin: Denies: rash Neurological: Denies: headache, weakness, numbness Past Medical History Past Medical History: Diabetes Mellitus, Hypertension History of Any Multi-Drug Resistant Organisms: None Reported Past Surgical History: No Surgical Hx Reported Past Psychological History: No Psychological Hx Reported Past Alcohol Use History: None Reported Past Drug Use History: None Reported - Past Family History Father Family Medical History: No Reported History, Diabetes Mellitus Mother Family Medical History: Osteoarthritis (OA), Pneumonia General Exam Limitations: no limitations General appearance: alert, in no apparent distress Head exam: Present: atraumatic, normocephalic Eye exam: Present: normal appearance. Absent: scleral icterus, conjunctival injection ENT exam: Present: normal oropharynx Neck exam: Present: normal inspection Respiratory exam: Present: respiratory distress, rales. Absent: rhonchi, stridor, accessory muscle use, decreased breath sounds Cardiovascular Exam: Present: regular rate, normal rhythm, normal heart sounds. Absent: systolic murmur, diastolic murmur, rubs, gallop GI/Abdominal exam: Present: soft. Absent: distended, tenderness, guarding, rebound, rigid, mass Extremities exam: Present: normal inspection, normal capillary refill, pedal edema. Absent: calf tenderness Back exam: Present: normal inspection. Absent: CVA tenderness (R), CVA tenderness (L) Neurological exam: Present: alert Skin exam: Present: warm, dry, intact, normal color. Absent: rash Course Vital Signs 11/20/23 11/20/23 11/20/23 03:53 03:58 04:09 Temperature 97.4 F L Pulse Rate 78 Respiratory 26 H 36 H Rate Blood Pressure 140/67 O2 Sat by Pulse 84 L 95 Oximetry 11/20/23 11/20/23 11/20/23 04:44 05:20 06:28 Temperature Pulse Rate 58 L 58 L Respiratory 24 23 Rate Blood Pressure 150/53 148/59 O2 Sat by Pulse 98 93 L 73 L Oximetry 11/20/23 11/20/23 11/20/23 06:30 12:03 19:42 Temperature 97.0 F L Pulse Rate 57 L 63 63 Respiratory 16 20 20 Rate Blood Pressure 148/59 177/66 169/58 O2 Sat by Pulse 93 L 94 L 93 L Oximetry 11/20/23 11/20/23 11/20/23 20:00 21:00 21:32 Temperature Pulse Rate 60 60 60 Respiratory 20 20 17 Rate Blood Pressure 107/79 103/90 173/65 O2 Sat by Pulse 93 L 93 L 94 L Oximetry 11/20/23 11/20/23 11/21/23 22:00 23:00 00:00 Temperature Pulse Rate 75 80 116 H Respiratory 20 20 20 Rate Blood Pressure 112/91 109/87 111/84 O2 Sat by Pulse 93 L 96 97 Oximetry 11/21/23 11/21/23 11/21/23 01:00 04:00 06:35 Temperature Pulse Rate 56 L 56 L 62 Respiratory 22 22 20 Rate Blood Pressure 161/52 164/60 167/53 O2 Sat by Pulse 95 96 95 Oximetry Medical Decision Making - Medical Decision Making The patient had chest x-ray which I interpreted as displaying congestive heart failure, no pneumothorax or acute infiltrate Was pt. sent in by a medical professional or institution (, PA, PARADI OPERATOR, urgent care, hospital, or custodial...) When possible be specific @ -[No] Did you speak to anyone other than the patient for history (EMS, parent, family, police, friend...)? What history was obtained from this source @ -[No] Did you review nursing and triage notes (agree or disagree)? Why? @ -[I reviewed and agree with nursing and triage notes] Were old charts reviewed (outside hosp., previous admission, EMS record, old EKG, old radiological studies, urgent care reports/EKG's, custodial records)? Report findings @ -[No old charts were reviewed] Differential Diagnosis (chest pain, altered mental status, abdominal pain women, abdominal pain men, vaginal bleeding, weakness, fever, dyspnea, syncope, headac he, dizziness, GI bleed, back pain, seizure, CVA, palpatations, mental health, musculoskeletal)? @ -[Differential Dyspnea: Coronary syndrome, arrhythmia, tamponade, asthma, COPD, pulmonary embolism, pneumonia, pneumothorax, pulmonary effusion, anaphylaxis, diabetic ketoacidosis, flailed chest, pulmonary contusion, diaphragmatic rupture, anemia, neuromuscular, this is not meant to be an all-inclusive list. EKG interpreted by me (3pts min.). @ -[As above] X-rays interpreted by me (1pt min.). @ -[None done] CT interpreted by me (1pt min.). @ -[None done] U/S interpreted by me (1pt. min.). @ -[None done] What testing was considered but not performed or refused? (CT, X-rays, U/S, labs)? Why? @ -[None] What meds were considered but not given or refused? Why? @ -[None] Did you discuss the management of the patient with other professionals (professionals i.e. , PA, PARADI OPERATOR, lab, RT, psych nurse, social media job titles, sewer contractor, teacher, navigation officer, caser)? Give summary @ -[Discussed with admitting physician Was smoking cessation discussed for >3mins.? @ -[No] Was critical care preformed (if so, how long)? @ -[No] Were there social determinants of health that impacted care today? How? (Homelessness, low income, unemployed, alcoholism, drug addiction, transportation, low edu. Level, literacy, decrease access to med. care, snf, rehab)? @ -[No] Was there de-escalation of care discussed even if they declined (Discuss DNR or withdrawal of care, Hospice)? DNR status @ -[No] What co-morbidities impacted this encounter? (DM, HTN, Smoking, COPD, CAD, Cancer, CVA, ARF, Chemo, Hep., AIDS, mental health diagnosis, sleep apnea, morbid obesity)? @ -[None] Was patient admitted / discharged? Hospital course, mention meds given and route, prescriptions, significant lab abnormalities, going to OR and other pertinent info. @ -[hospital course] Undiagnosed new problem with uncertain prognosis? @ -[No] Drug Therapy requiring intensive monitoring for toxicity (Heparin, Nitro, Insulin, Cardizem)? @ -[No] Were any procedures done? @ -[No] Diagnosis/symptom? @ -[Acute exacerbation of congestive heart failure Acute, or Chronic, or Acute on Chronic? @ -[default] Uncomplicated (without systemic symptoms) or Complicated (systemic symptoms)? @ -[default] Side effects of treatment? @ -[No] Exacerbation, Progression, or Severe Exacerbation? @ -[Exacerbation Poses a threat to life or bodily function? How? (Chest pain, USA, NH, pneumonia, PE, COPD, DKA, ARF, appy, cholecystitis, CVA, Diverticulitis, Homicidal, Suicidal, threat to staff... and all critical care pts) @ -[Yes - Lab Data Result diagrams: 11/20/23 04:00 11/23/23 07:25 Lab Results 11/20/23 11/20/23 11/20/23 Range/Units 04:00 04:00 04:00 WBC 9.9 (3.8-10.6) k/uL RBC 4.29 (3.80-5.40) m/uL Hgb 12.3 (11.4-16.0) gm/dL Hct 39.2 (34.0-46.0) % MCV 91.3 (80.0-100.0) fL MCH 28.7 (25.0-35.0) pg MCHC 31.4 (31.0-37.0) g/dL RDW 14.2 (11.5-15.5) % Plt Count 334 (150-450) k/uL MPV 7.3 Neutrophils % 77 % Lymphocytes % 15 % Monocytes % 5 % Eosinophils % 1 % Basophils % 0 % Neutrophils # 7.6 (1.3-7.7) k/uL Lymphocytes # 1.5 (1.0-4.8) k/uL Monocytes # 0.5 (0-1.0) k/uL Eosinophils # 0.1 (0-0.7) k/uL Basophils # 0.0 (0-0.2) k/uL Hypochromasia Slight PT 10.2 (10.0-12.5) sec INR 0.9 (<1.2) APTT 24.7 (22.0-30.0) sec D-Dimer 1.89 H (<0.60) mg/L FEU Sodium 132 L (137-145) mmol/L Potassium 5.5 H (3.5-5.1) mmol/L Chloride 100 (98-107) mmol/L Carbon Dioxide 17 L (22-30) mmol/L Anion Gap 15 mmol/L BUN 34 H (7-17) mg/dL Creatinine 1.47 H (0.52-1.04) mg/dL Est GFR (CKD-EPI)AfAm 37 (>60 ml/min/1.73 sqM) Est GFR (CKD-EPI)NonAf 32 (>60 ml/min/1.73 sqM) Glucose 206 H (74-99) mg/dL Plasma Lactic Acid Dave (0.7-2.0) mmol/L Calcium 9.8 (8.4-10.2) mg/dL Total Bilirubin 0.6 (0.2-1.3) mg/dL AST 25 (14-36) U/L ALT 17 (4-34) U/L Alkaline Phosphatase 136 H (38-126) U/L Troponin I (0.000-0.034) ng/mL NT-Pro-B Natriuret Pep 5070 pg/mL Total Protein 8.2 (6.3-8.2) g/dL Albumin 4.5 (3.5-5.0) g/dL Procalcitonin (0.02-0.09) ng/mL Influenza Type A (PCR) (Not Detectd) Influenza Type B (PCR) (Not Detectd) RSV (PCR) (Not Detectd) SARS-CoV-2 (PCR) (Not Detectd) 11/20/23 11/20/23 11/20/23 Range/Units 04:00 04:00 04:24 WBC (3.8-10.6) k/uL RBC (3.80-5.40) m/uL Hgb (11.4-16.0) gm/dL Hct (34.0-46.0) % MCV (80.0-100.0) fL MCH (25.0-35.0) pg MCHC (31.0-37.0) g/dL RDW (11.5-15.5) % Plt Count (150-450) k/uL MPV Neutrophils % % Lymphocytes % % Monocytes % % Eosinophils % % Basophils % % Neutrophils # (1.3-7.7) k/uL Lymphocytes # (1.0-4.8) k/uL Monocytes # (0-1.0) k/uL Eosinophils # (0-0.7) k/uL Basophils # (0-0.2) k/uL Hypochromasia PT (10.0-12.5) sec INR (<1.2) APTT (22.0-30.0) sec D-Dimer (<0.60) mg/L FEU Sodium (137-145) mmol/L Potassium (3.5-5.1) mmol/L Chloride (98-107) mmol/L Carbon Dioxide (22-30) mmol/L Anion Gap mmol/L BUN (7-17) mg/dL Creatinine (0.52-1.04) mg/dL Est GFR (CKD-EPI)AfAm (>60 ml/min/1.73 sqM) Est GFR (CKD-EPI)NonAf (>60 ml/min/1.73 sqM) Glucose (74-99) mg/dL Plasma Lactic Acid Dave 1.0 (0.7-2.0) mmol/L Calcium (8.4-10.2) mg/dL Total Bilirubin (0.2-1.3) mg/dL AST (14-36) U/L ALT (4-34) U/L Alkaline Phosphatase (38-126) U/L Troponin I <0.012 (0.000-0.034) ng/mL NT-Pro-B Natriuret Pep pg/mL Total Protein (6.3-8.2) g/dL Albumin (3.5-5.0) g/dL Procalcitonin (0.02-0.09) ng/mL Influenza Type A (PCR) Not Detected (Not Detectd) Influenza Type B (PCR) Not Detected (Not Detectd) RSV (PCR) Not Detected (Not Detectd) SARS-CoV-2 (PCR) Not Detected (Not Detectd) 11/20/23 Range/Units 04:58 WBC (3.8-10.6) k/uL RBC (3.80-5.40) m/uL Hgb (11.4-16.0) gm/dL Hct (34.0-46.0) % MCV (80.0-100.0) fL MCH (25.0-35.0) pg MCHC (31.0-37.0) g/dL RDW (11.5-15.5) % Plt Count (150-450) k/uL MPV Neutrophils % % Lymphocytes % % Monocytes % % Eosinophils % % Basophils % % Neutrophils # (1.3-7.7) k/uL Lymphocytes # (1.0-4.8) k/uL Monocytes # (0-1.0) k/uL Eosinophils # (0-0.7) k/uL Basophils # (0-0.2) k/uL Hypochromasia PT (10.0-12.5) sec INR (<1.2) APTT (22.0-30.0) sec D-Dimer (<0.60) mg/L FEU Sodium (137-145) mmol/L Potassium (3.5-5.1) mmol/L Chloride (98-107) mmol/L Carbon Dioxide (22-30) mmol/L Anion Gap mmol/L BUN (7-17) mg/dL Creatinine (0.52-1.04) mg/dL Est GFR (CKD-EPI)AfAm (>60 ml/min/1.73 sqM) Est GFR (CKD-EPI)NonAf (>60 ml/min/1.73 sqM) Glucose (74-99) mg/dL Plasma Lactic Acid Dave (0.7-2.0) mmol/L Calcium (8.4-10.2) mg/dL Total Bilirubin (0.2-1.3) mg/dL AST (14-36) U/L ALT (4-34) U/L Alkaline Phosphatase (38-126) U/L Troponin I (0.000-0.034) ng/mL NT-Pro-B Natriuret Pep pg/mL Total Protein (6.3-8.2) g/dL Albumin (3.5-5.0) g/dL Procalcitonin 0.04 (0.02-0.09) ng/mL Influenza Type A (PCR) (Not Detectd) Influenza Type B (PCR) (Not Detectd) RSV (PCR) (Not Detectd) SARS-CoV-2 (PCR) (Not Detectd) - EKG Data -: EKG Interpreted by Me EKG shows normal: sinus rhythm, axis (Rate 71 bpm), intervals (Normal), QRS complexes (Normal), ST-T waves (Normal) Rate: normal (Rate 71 bpm) Disposition Clinical Impression: Congestive heart failure Disposition: ADMITTED IP TO THIS HOSP Condition: Fair Is patient prescribed a controlled substance at d/c from ED?: No
[2023-11-20] MEDS: NITROGLYCERIN SL TABS 0.4 MG TAB SUBLINGUAL STA ×2 (04:29→05:19)
[2023-11-20 04:31] LABS: ALT 17 U/L (4-34); AST 25 U/L (14-36); African American GFR (CKD) 37 (>60 ml/min/1.73 sqM); Albumin 4.5 g/dL (3.5-5.0); Alkaline Phosphatase 136 U/L (38-126); Anion Gap 15 mmol/L; Blood Urea Nitrogen 34 mg/dL (7-17); Calcium 9.8 mg/dL (8.4-10.2); Carbon Dioxide 17 mmol/L (22-30); Chloride 100 mmol/L (98-107); Glucose 206 mg/dL (74-99); Non-African American GFR(CKD) 32 (>60 ml/min/1.73 sqM); Potassium 5.5 mmol/L (3.5-5.1); Sodium 132 mmol/L (137-145); Total Bilirubin 0.6 mg/dL (0.2-1.3); Total Protein 8.2 g/dL (6.3-8.2)
[2023-11-20 04:37] LABS: INR 0.9 (<1.2); Partial Thromboplastin Time 24.7 sec (22.0-30.0); Prothrombin Time 10.2 sec (10.0-12.5)
[2023-11-20 04:39] LABS: NT-Pro-B-Type Natriuretic Pept 5070 pg/mL
--- NOTE | 2023-11-20 06:06 | XR ---
EXAM: XR Chest, 1 View CLINICAL HISTORY: Dyspnea. TECHNIQUE: Frontal view of the chest. COMPARISON: September 12, 2019. IMPRESSION: Cardiomegaly with diffuse pulmonary edema. This appears to represent CHF.
[2023-11-20] MEDS: FUROSEMIDE 10 MG/ML 4 ML VIAL IV SCH ×2 (11:54→21:26)
[2023-11-20] MEDS: NITROGLYCERIN OINT 1 INCH/GM PACKET TOPICAL SCH ×2 (12:07→20:49)
--- NOTE | 2023-11-20 13:40 | NM ---
EXAMINATION TYPE: NM pul vent and perfuse DATE OF EXAM: 11/20/2023 CLINICAL INDICATION: Female, 88 years old shortness of breath with history of elevated D-dimer; Comparison: Chest radiograph same day TECHNIQUE: Utilizing inhalation of 66.4 mCi Tc 99m DTPA aerosol and intravenous injection of 5.1 mCi of Tc 99m MAA, ventilation and perfusion images are acquired post injection in multiple projections. FINDINGS: No mismatched perfusion defect is seen. There is some clumping of tracer within the central airways o n the ventilation images. IMPRESSION: Very low probability for pulmonary embolus. Some clumping of tracer in the central airways may be see n with COPD.
--- NOTE | 2023-11-20 13:50 | P.CRDCN ---
History of Present Illness Consult date: 11/20/23 Consult reason: congestive heart failure History of present illness: The patient is an 88-year-old female presented to the emergency room with inc reased shortness of breath. The patient states she had been feeling unwell over the last several weeks. She states she's had been struggling to climb steps [place] and is now unable to ambulate to the restroom without significant shortness of breath. The patient is labored resting in bed. DIAGNOSTICS: EKG shows sinus rhythm without ST or T-wave abnormalities Chest x-ray shows cardiomegaly with diffuse pulmonary edema Lab data: W BC 9.9, hemoglobin 12.3, hematocrit 39.2, platelets 334, d-dimer 1.89, sodium 132, potassium 5.5, BUN 34, creatinine 1.47, AST 25, ALT 17, troponins negative 2, BNP 5000 REVIEW OF SYSTEMS: No fever or chills. No cough or expectoration. No diaphores is. Patient denies headache, dizziness, blurred vision, double vision. Patient denies any stomach discomfort. No nausea, vomiting. No hematochezia. No hematemesis. Denies any black stools or blood in his stools. Denies dysuria or hematuria. No muscle weakness or numbness. Positive for shortness of breath. Positive for orthopnea. No chest pain. PHYSICAL EXAMINATION: This is a 88-year-old female in mild respiratory distress. HEENT: Head is atraumatic, normocephalic. Pupils are equal, round. Elevated jugular venous distention. No carotid bruit is heard. CHEST EXAMINATION: Lungs are diminished to auscultation. No chest wall tenderness is noted on palpation or with deep breathing. Fine crackles in the bases HEART EXAMINATION: Heart regular rate and rhythm. S1, S2 heard. No murmurs, gallops or rub. ABDOMEN: Soft, nontender. Bowel sounds are heard. No organomegaly noted. EXTREMITIES: 2+ peripheral pulses. +2 lower extremity edema and no calf tenderness noted. NEUROLOGIC EXAMINATION: Patient is awake, alert and oriented x3. FINAL ASSESSMENT AND PLAN: Shortness of breath Acute congestive heart failure, unspecified Elevated d-dimer, check VQ scan Obesity, BMI 32 History of diabetes PLAN: Continue IV diuresis and trend troponin Resume SIMBA inhibitor Consider adding low-dose carvedilol VQ scan to assess for pulmonary emboli Echocardiogram to assess heart structure and function Further recommendations based on clinical course I am dictating on behalf of Dr Justo Lucas's history/physical and assessment/plan. Past Medical History Past Medical History: Diabetes Mellitus, Hypertension History of Any Multi-Drug Resistant Organisms: None Reported Past Surgical History: No Surgical Hx Reported Past Psychological History: No Psychological Hx Reported Past Alcohol Use History: None Reported Past Drug Use History: None Reported Medications and Allergies Home Medications Medication Instructions Recorded Confirmed Type Bisoprolol/Hydrochlorothiazide 1.5 tab PO DAILY 09/12/19 11/20/23 History [Bisoprolol-Hctz 10-6.25 mg Tab] Pioglitazone HCl 30 mg PO DAILY 09/12/19 11/20/23 History Simvastatin 40 mg PO DAILY 09/12/19 11/20/23 History metFORMIN HCL [Glucophage] 1,000 mg PO BID 09/12/19 11/20/23 History Aspirin 81 mg PO DAILY #30 chew 09/14/19 11/20/23 Rx Ergocalciferol (Vitamin D2) 1,250 mcg PO QMONTHLY 11/20/23 11/20/23 History [Drisdol (50,000 Iu)] amLODIPine BESYLATE/BENAZEPRIL 1 cap PO BID 11/20/23 11/20/23 History [Lotrel 5-20 mg Capsule] Allergies Allergy/AdvReac Type Severity Reaction Status Date / Time Sulfa (Sulfonamide Allergy Swelling Verified 11/20/23 10:56 Antibiotics) Physical Exam Vitals: Vital Signs Temp Pulse Resp BP Pulse Ox 11/20/23 12:03 97.0 F L 63 20 177/66 94 L 11/20/23 06:30 57 L 16 148/59 93 L 11/20/23 06:28 58 L 23 148/59 73 L 11/20/23 05:20 58 L 24 150/53 93 L 11/20/23 04:44 98 11/20/23 04:09 36 H 11/20/23 03:58 95 11/20/23 03:53 97.4 F L 78 26 H 140/67 84 L Intake and Output 11/19/23 11/20/23 11/20/23 22:59 06:59 14:59 Other: Weight 90.718 kg Results 11/20/23 04:00 11/20/23 04:00 Cardiac Enzymes 11/20/23 11/20/23 11/20/23 Range/Units 04:00 04:00 10:17 AST 25 (14-36) U/L Troponin I <0.012 <0.012 (0.000-0.034) ng/mL Coagulation 11/20/23 Range/Units 04:00 PT 10.2 (10.0-12.5) sec APTT 24.7 (22.0-30.0) sec CBC 11/20/23 Range/Units 04:00 WBC 9.9 (3.8-10.6) k/uL RBC 4.29 (3.80-5.40) m/uL Hgb 12.3 (11.4-16.0) gm/dL Hct 39.2 (34.0-46.0) % Plt Count 334 (150-450) k/uL Comprehensive Metabolic Panel 11/20/23 Range/Units 04:00 Sodium 132 L (137-145) mmol/L Potassium 5.5 H (3.5-5.1) mmol/L Chloride 100 (98-107) mmol/L Carbon Dioxide 17 L (22-30) mmol/L BUN 34 H (7-17) mg/dL Creatinine 1.47 H (0.52-1.04) mg/dL Glucose 206 H (74-99) mg/dL Calcium 9.8 (8.4-10.2) mg/dL AST 25 (14-36) U/L ALT 17 (4-34) U/L Alkaline Phosphatase 136 H (38-126) U/L Total Protein 8.2 (6.3-8.2) g/dL Albumin 4.5 (3.5-5.0) g/dL Current Medications Generic Name Dose Route Start Last Admin Trade Name Freq PRN Reason Stop Dose Admin Aspirin 325 mg 11/21/23 09:00 Aspirin 325 Mg Tab PO DAILY AALIYAH Furosemide 40 mg 11/20/23 09:00 11/20/23 11:54 Furosemide 10 Mg/Ml 4 Ml Vial IV Not Given Q12HR AALIYAH Nitroglycerin 0.5 inch 11/20/23 12:00 11/20/23 12:07 Nitroglycerin Oint 1 Inch/Gm Packet TOPICAL 11/21/23 12:01 0.5 inch Q6HR AALIYAH Administration Sodium Chloride 10 ml 11/20/23 09:00 11/20/23 11:54 Sodium Chloride 0.9% Flush 10 Ml Syringe IV Not Given BID AALIYAH Intake and Output 11/19/23 11/20/23 11/20/23 22:59 06:59 14:59 Other: Weight 90.718 kg 11/20/23 04:00 11/20/23 04:00
[2023-11-20] MEDS: lisinopriL 20 MG TAB PO SCH (19:16)
[2023-11-20] MEDS: amLODIPine 5 MG TAB PO SCH (21:27)
--- NOTE | 2023-11-20 22:08 | HP ---
HISTORY AND PHYSICAL CHIEF COMPLAINT: Difficulty breathing. HISTORY OF PRESENT ILLNESS: This is another admission for this 88-year-old white female. She has been having difficulty breathing for the last couple of weeks and it grew worse and worse. She kept putting off going to the hospital. She came into the emergency room with shortness of breath and was found to be in congestive heart failure. Her BNP was 5070. She is also in renal failure with a BUN of 34, creatinine 1.47, and GFR of 52. X-ray was compatible with heart failure with cardiomegaly and interstitial infiltrates. CTA was negative. REVIEW OF SYSTEMS: She had no cough, hemoptysis, fever, chills, abdominal pain, etc. Past medical history, family history, and personal and social histories are all otherwise unremarkable and noncontributory. PHYSICAL EXAMINATION: VITAL SIGNS: Normal. HEAD, EARS, EYES, NOSE, MOUTH AND THROAT: Normal. NECK: Neck veins not distended. CHEST: Demonstrated scattered rales with occasional expiratory wheezing. CARDIAC: Revealed a grade 2/6 systolic murmur. ABDOMEN: Soft, nontender. EXTREMITIES: Normal. There is minimal edema. IMPRESSION: 1. Acute congestive heart failure. 2. Renal failure. 3. History of diabetes mellitus. PLAN: 1. Bed rest. 2. IV fluids. 3. Echocardiogram. 4. Diuresis. 5. Consult Cardiology. DARLIN / RAMIRO: [id number] /
[2023-11-20 23:03] LABS: Chol/HDL Ratio 2.89 Ratio; LDL Cholesterol,Calculated 79.3 mg/dL (0.0-131.0)
[2023-11-21] MEDS: NITROGLYCERIN OINT 1 INCH/GM PACKET TOPICAL SCH ×2 (03:14→09:15)
[2023-11-21] MEDS ORDERED: ASPIRIN 325 MG TAB PO SCH (09:00)
[2023-11-21] MEDS: lisinopriL 20 MG TAB PO SCH (09:16)
[2023-11-21] MEDS: amLODIPine 5 MG TAB PO SCH (09:16)
[2023-11-21] MEDS: BISOPROLOL-HCTZ 10-6.25 MG 1 EACH TAB PO SCH (09:16)
[2023-11-21] MEDS: ATORVASTATIN 20 MG TAB PO SCH (09:16)
[2023-11-21] MEDS: ASPIRIN 81 MG PO SCH (09:16)
[2023-11-21] MEDS: FUROSEMIDE 10 MG/ML 4 ML VIAL IV SCH ×2 (09:18→20:10)
--- NOTE | 2023-11-21 11:25 | P.PN ---
Subjective Progress Note Date: 11/21/23 This is a pleasant 88-year-old female with a past history of hypertension and diabetes. She does not follow regularly with a decaler. History of heart murmur noted during an office visit with her primary care provider about a year ago. He presented to the emergency department with progressively worsening shortness of breath. She was struggling to climb stairs and had issues including even to the bathroom also had some orthopnea and mildly worsening lower extremity edema. BNP was over 5000 and chest x-ray showed cardiomegaly with diffuse pulmonary edema. Then initiated on IV Lasix. Edema has improved some and her breathing is significantly better. Blood pressure remained elevated she is currently on amlodipine as well as bisoprolol and hydrochlorothiazide. She was on Actos at home for diabetes. Objective - Vital Signs Vital signs: Vital Signs Temp 97.5 F L 11/21/23 08:10 Pulse 63 11/21/23 08:10 Resp 28 H 11/21/23 08:10 BP 192/73 11/21/23 08:10 Pulse Ox 97 11/21/23 08:10 FiO2 Intake & Output 11/20/23 11/21/23 11/21/23 18:59 06:59 18:59 Intake Total 358 Balance 358 Intake: Oral 358 Other: Voiding Method External Catheter # Voids 1 - Exam HEENT: Head is atraumatic, normocephalic. Pupils are equal, round. Elevated jugular venous distention. No carotid bruit is heard. CHEST EXAMINATION: Lungs are diminished to auscultation with faint bibasilar crackles. No chest wall tenderness is noted on palpation or with deep breathing. HEART EXAMINATION: Heart regular rate and rhythm. S1, S2 heard. Systolic murmur. ABDOMEN: Soft, nontender. Bowel sounds are heard. No organomegaly noted. EXTREMITIES: 2+ peripheral pulses. +1-2 lower extremity edema and no calf tenderness noted. NEUROLOGIC EXAMINATION: Patient is awake, alert and oriented x3. - Labs CBC & Chem 7: 11/20/23 04:00 11/20/23 04:00 Labs: Abnormal Lab Results - Last 24 Hours (Table) 11/20/23 Range/Units 14:13 Hemoglobin A1c 6.7 H (<=6.0) % Assessment and Plan Assessment: Acute heart failure, unspecified, awaiting echocardiogram results Hypertension Diabetes Obesity Plan: From cardiology's perspective we will discontinue amlodipine and add hydralazine. We will add Farxiga. Recommend avoiding Actos. Echocardiogram is pending. We'll continue to follow the patient provide further recommendations accordingly. BUSINESS ANALYTICS ANALYST note has been reviewed, I agree with a documented findings and plan of care. Patient was seen and examined.
[2023-11-21 11:31] LABS: Glucose,Whole Blood 136 mg/dL (70-110)
[2023-11-21] MEDS: DAPAGLIFLOZIN PROPANEDIOL 10 MG TABLET PO SCH (12:29)
[2023-11-21] MEDS: hydrALAZINE HCL 25 MG TAB PO SCH ×2 (12:29→20:10)
[2023-11-21] MEDS: ISOSORBIDE MONONITRATE ER 30 MG TAB.ER.24H PO SCH (12:29)
[2023-11-21 13:03] VITALS: BMI 32.3
[2023-11-21 17:07] LABS: Glucose,Whole Blood 134 mg/dL (70-110)
[2023-11-21 19:47] LABS: Glucose,Whole Blood 162 mg/dL (70-110)
--- NOTE | 2023-11-22 02:40 | PN ---
PROGRESS NOTE DATE OF SERVICE: 11/21/2023 CHIEF COMPLAINT: Shortness of breath and congestive heart failure. HISTORY OF PRESENT ILLNESS: This lady is doing a little bit better and feels much less short of breath. PHYSICAL EXAMINATION: VITAL SIGNS: Her blood pressure is still slightly high. CHEST: Demonstrates rales bilaterally, but they are diminished. There are no rhonchi. CARDIAC: Same with a slight murmur. IMPRESSION: Acute on chronic congestive heart failure. PLAN: 1. Continue with diuresis. 2. Add Entresto in 3 days after stopping her SIMBA inhibitor. 3. Farxiga. 4. PT and OT. 5. She is a candidate for GLP1, but none are on formulary. MMODL / IJN: [id number] /
[2023-11-22 05:43] LABS: Glucose,Whole Blood 126 mg/dL (70-110)
--- NOTE | 2023-11-22 08:07 | CA ---
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 Farhad iSms Procedure CPT: Indications: Congestive heart failure Cardiac Hx: Technical Quality: Fair Contrast 1: Total Dose (mL): Contrast 2: Total Dose (mL): MEASUREMENTS (Male / Female) Normal Values 2D ECHO LV Diastolic Diameter PLAX 4.8 cm 4.2 - 5.9 / 3.9 - 5.3 cm LV Systolic Diameter PLAX 2.8 cm IVS Diastolic Thickness 0.9 cm 0.6 - 1.0 / 0.6 - 0.9 cm LVPW Diastolic Thickness 1.2 cm 0.6 - 1.0 / 0.6 - 0.9 cm LV Relative Wall Thickness 0.4 RV Internal Dim ED PLAX 2.9 cm LVOT Diameter 2.0 cm Aortic Root Diameter 2.6 cm LA Systolic Diameter LX 2.3 cm 3.0 - 4.0 / 2.7 - 3.8 cm LV Diastolic Volume MOD BP 57.5 cm??? 67 - 155 / 56 - 104 cm??? LV Systolic Volume MOD BP 22.3 cm??? - 58 / 19 - 49 cm??? LV Ejection Fraction MOD BP 61.2 % >= 55 % LV Cardiac Index MOD BP 1045.6 cm???/min???m??? LV Diastolic Volume MOD 4C 62.0 cm??? LV Systolic Volume MOD 4C 21.7 cm??? LV Ejection Fraction MOD 4C 65.0 % LV Cardiac Index MOD 4C 1198.9 cm???/min???m??? LV Diastolic Length 4C 7.1 cm LV Systolic Length 4C 5.7 cm LV Diastolic Volume MOD 2C 52.1 cm??? LV Systolic Volume MOD 2C 21.8 cm??? LV Ejection Fraction MOD 2C 58.1 % LV Cardiac Index MOD 2C 899.5 cm???/min???m??? LV Diastolic Length 2C 6.9 cm LV Systolic Length 2C 6.0 cm LA Volume 59.0 cm??? 18 - 58 / 22 - 52 cm??? LA Volume Index 28.3 cm???/m??? 16 - 28 cm???/m??? DOPPLER AV Peak Velocity 205.6 cm/s AV Peak Gradient 16.9 mmHg AV Mean Velocity 137.7 cm/s AV Mean Gradient 8.8 mmHg AV Velocity Time Integral 49.8 cm LVOT Peak Velocity 106.7 cm/s LVOT Peak Gradient 4.6 mmHg LVOT Velocity Time Integral 30.2 cm LVOT Stroke Volume 99.6 cm??? LVOT Stroke Volume Index 49.8 ml/m??? LVOT Cardiac Index 2958.4 cm???/min???m??? AV Area Cont Eq vti 2.0 cm??? AV Area Cont Eq pk 1.7 cm??? MV Peak Velocity 163.1 cm/s MV Peak Gradient 10.6 mmHg MV Mean Velocity 80.7 cm/s MV Mean Gradient 3.4 mmHg MV Velocity Time Integral 71.1 cm MR Peak Velocity 542.8 cm/s MR Peak Gradient 117.8 mmHg Mitral E Point Velocity 138.9 cm/s Mitral A Point Velocity 143.2 cm/s Mitral E to A Ratio 1.0 MV Deceleration Time 216.0 ms MV E' Velocity 5.8 cm/s Mitral E to MV E' Ratio 24.1 TR Peak Velocity 357.5 cm/s TR Peak Gradient 51.1 mmHg Right Ventricular Systolic Press 56.1 mmHg PV Peak Velocity 117.2 cm/s PV Peak Gradient 5.5 mmHg FINDINGS Left Ventricle Normal LV size and wall thickness. Left ventricular ejection fraction is estimated at 50-55 %. Right Ventricle Normal right ventricular size. RVSP= 56mmHg. Right Atrium Normal right atrial size. Left Atrium Mild left atrial dilatation. LA volume index= 29.5ml/m2 Mitral Valve Moderately severe mitral annulus calcification. Mild MR. MV max pressure gradient= 10.6mmHg. Mean gradient= 3.4mmHg. Aortic Valve Aortic valve not well visualized. AV max presure gradient=16mmHg. Mean PG= 9.2mmHg. Tricuspid Valve Tricuspid valve not well visualized. Mild TR. Pulmonic Valve Pulmonic valve not well visualized. No pulmonic regurgitation. Pericardium Normal pericardium. Aorta Normal size aortic root. CONCLUSIONS Left ventricular ejection fraction 50-55% RVSP 56 Moderate to severe mitral annular calcification Mild mitral regurgitation Sclerotic aortic valve without significant aortic stenosis Mild tricuspid regurgitation Previewed by: Dr. Nilo Whittington DO (Electronically Signed) Final Date: 22 November 2023 08:06
[2023-11-22] MEDS: ISOSORBIDE MONONITRATE ER 30 MG TAB.ER.24H PO SCH (08:32)
[2023-11-22] MEDS: ASPIRIN 81 MG PO SCH (08:32)
[2023-11-22] MEDS: ATORVASTATIN 20 MG TAB PO SCH (08:32)
[2023-11-22] MEDS: DAPAGLIFLOZIN PROPANEDIOL 10 MG TABLET PO SCH (08:32)
[2023-11-22] MEDS: BISOPROLOL-HCTZ 10-6.25 MG 1 EACH TAB PO SCH (08:32)
[2023-11-22] MEDS: FUROSEMIDE 10 MG/ML 4 ML VIAL IV SCH (08:33)
[2023-11-22] MEDS: hydrALAZINE HCL 25 MG TAB PO SCH ×2 (08:33→20:12)
[2023-11-22 08:37] LABS: African American GFR (CKD) 28 (>60 ml/min/1.73 sqM); Anion Gap 14 mmol/L; Blood Urea Nitrogen 47 mg/dL (7-17); Calcium 9.2 mg/dL (8.4-10.2); Carbon Dioxide 21 mmol/L (22-30); Chloride 98 mmol/L (98-107); Glucose 211 mg/dL (74-99); Non-African American GFR(CKD) 24 (>60 ml/min/1.73 sqM); Potassium 4.6 mmol/L (3.5-5.1); Sodium 133 mmol/L (137-145)
--- NOTE | 2023-11-22 11:55 | P.PN ---
Subjective HISTORY OF PRESENT ILLNESS: 11/21/23 This is a pleasant 88-year-old female with a past history of hypertension and diabetes. 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 History of heart murmur noted during an office visit with her primary care provider about a year ago. He presented to the emergency department with progressively worsening shortness of breath. She was struggling to climb stairs and had issues including even to the bathroom also had some orthopnea and mildly worsening lower extremity edema. BNP was over 5000 and chest x-ray showed cardiomegaly with diffuse pulmonary edema. Then initiated on IV Lasix. Edema has improved some and her breathing is significantly better. Blood pressure remained elevated she is currently on amlodipine as well as bisoprolol and hydrochlorothiazide. She was on Actos at home for diabetes. 11/22/2023 Patient examined this morning at the bedside. Patient currently denies chest pain or pressure. She reports mild shortness of breath. She was weaned off her oxygen this morning. She remains on IV Lasix 40 mg every 12 hours. Creatinine today is increased to 1.88. PHYSICAL EXAM: VITAL SIGNS: Reviewed. GENERAL: Well-developed in no acute distress. NECK: Supple. No JVD or thyromegaly LUNGS: Respirations even and unlabored. Lungs with inspiratory wheezing and expiratory rhonchi HEART: Regular rate and rhythm. S1 and S2 heard. Systolic murmur noted. EXTREMITIES: Normal range of motion. No clubbing or cyanosis. Peripheral pulses intact. Trace bilateral lower extremity edema ASSESSMENT: Shortness of breath Acute heart failure with preserved ejection fraction Acute kidney injury Hypertension Diabetes Morbid obesity PLAN: Continue current cardiac medications Decrease IV Lasix to 40 mg daily secondary to rising creatinine Daily weights, accurate I&O, monitor kidney function Discontinue Entresto secondary to rising creatinine and echo revealing preserved LV systolic function Further recommendations pending patient's course Nurse practitioner note has been reviewed by physician. Signing provider agrees with the documented findings, assessment, and plan of care. Objective - Vital Signs Vital signs: Vital Signs Temp 98.3 F 11/22/23 08:35 Pulse 63 11/22/23 08:35 Resp 16 11/22/23 08:35 BP 145/72 11/22/23 08:35 Pulse Ox 98 11/22/23 08:35 FiO2 Intake & Output 11/21/23 11/22/23 11/22/23 18:59 06:59 18:59 Intake Total 598 10 240 Output Total 360 1525 Balance 238 -1515 240 Weight 90.718 kg 99.4 kg Intake: IV 10 0.9 10 Oral 598 240 Output: Urine 360 1525 Other: Voiding Method External Catheter External Catheter External Catheter # Voids 1 - Labs CBC & Chem 7: 11/20/23 04:00 11/22/23 07:52 Labs: Abnormal Lab Results - Last 24 Hours (Table) 11/21/23 11/21/23 11/22/23 Range/Units 17:06 19:46 05:42 Sodium (137-145) mmol/L Carbon Dioxide (22-30) mmol/L BUN (7-17) mg/dL Creatinine (0.52-1.04) mg/dL Glucose (74-99) mg/dL POC Glucose (mg/dL) 134 H 162 H 126 H (70-110) mg/dL 11/22/23 Range/Units 07:52 Sodium 133 L (137-145) mmol/L Carbon Dioxide 21 L (22-30) mmol/L BUN 47 H (7-17) mg/dL Creatinine 1.88 H (0.52-1.04) mg/dL Glucose 211 H (74-99) mg/dL POC Glucose (mg/dL) (70-110) mg/dL
[2023-11-22 11:56] LABS: Glucose,Whole Blood 113 mg/dL (70-110)
[2023-11-22 17:01] LABS: Glucose,Whole Blood 141 mg/dL (70-110)
[2023-11-22] MEDS: polyethylene glycoL 3350 17 GM POWD.PACK PO SCH (18:44)
[2023-11-22 20:05] LABS: Glucose,Whole Blood 183 mg/dL (70-110)
--- NOTE | 2023-11-23 00:46 | PN ---
PROGRESS NOTE DATE OF SERVICE: 11/22/2023 CHIEF COMPLAINT: Congestive heart failure. HISTORY OF PRESENT ILLNESS: This lady is doing fairly well. She is constipated. Breathing is better. PHYSICAL EXAMINATION: VITAL SIGNS: Normal. CHEST: Demonstrates a few rales at the bases. CARDIAC: Unremarkable. ABDOMEN: Soft, nontender. EXTREMITIES: She is slightly less edematous. IMPRESSION: 1. Acute congestive heart failure. 2. Chronic congestive heart failure. 3. Constipation. PLAN: 1. MiraLAX for constipation. 2. Continue to monitor her cardiac and respiratory function. 3. Repeat chest x-ray and laboratory studies. 4. Consider further changes to her medication program, in that she has heart failure with preserved ejection fraction. MMODL / IJN: [id number] /
[2023-11-23] MEDS ORDERED: ZINC OXIDE PASTE (Z-GUARD) 1 APPLIC TOPICAL PRN (04:51)
[2023-11-23 06:03] LABS: Glucose,Whole Blood 173 mg/dL (70-110)
[2023-11-23 08:29] LABS: African American GFR (CKD) 30 (>60 ml/min/1.73 sqM); Anion Gap 11 mmol/L; Blood Urea Nitrogen 57 mg/dL (7-17); Calcium 9.2 mg/dL (8.4-10.2); Carbon Dioxide 25 mmol/L (22-30); Chloride 96 mmol/L (98-107); Glucose 154 mg/dL (74-99); Non-African American GFR(CKD) 26 (>60 ml/min/1.73 sqM); Potassium 4.7 mmol/L (3.5-5.1); Sodium 132 mmol/L (137-145)
[2023-11-23] MEDS: hydrALAZINE HCL 25 MG TAB PO SCH ×2 (09:00→19:52)
[2023-11-23] MEDS: ASPIRIN 81 MG PO SCH (09:00)
[2023-11-23] MEDS: FUROSEMIDE 10 MG/ML 4 ML VIAL IV SCH ×2 (09:00→10:14)
[2023-11-23] MEDS: DAPAGLIFLOZIN PROPANEDIOL 10 MG TABLET PO SCH (09:00)
[2023-11-23] MEDS: ISOSORBIDE MONONITRATE ER 30 MG TAB.ER.24H PO SCH (09:00)
[2023-11-23] MEDS: ATORVASTATIN 20 MG TAB PO SCH (09:00)
[2023-11-23] MEDS: polyethylene glycoL 3350 17 GM POWD.PACK PO SCH (09:01)
[2023-11-23] MEDS: BISOPROLOL-HCTZ 10-6.25 MG 1 EACH TAB PO SCH (09:01)
[2023-11-23] MEDS ORDERED: SACUBITRIL/VALSARTAN 24 MG-26 MG TABLET PO SCH ×2 (11:00→21:00)
--- NOTE | 2023-11-23 11:25 | P.PN ---
Subjective HISTORY OF PRESENT ILLNESS: 11/21/23 This is a pleasant 88-year-old female with a past history of hypertension and diabetes. 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 History of heart murmur noted during an office visit with her primary care provider about a year ago. He presented to the emergency department with progressively worsening shortness of breath. She was struggling to climb stairs and had issues including even to the bathroom also had some orthopnea and mildly worsening lower extremity edema. BNP was over 5000 and chest x-ray showed cardiomegaly with diffuse pulmonary edema. Then initiated on IV Lasix. Edema has improved some and her breathing is significantly better. Blood pressure remained elevated she is currently on amlodipine as well as bisoprolol and hydrochlorothiazide. She was on Actos at home for diabetes. 11/22/2023 Patient examined this morning at the bedside. Patient currently denies chest pain or pressure. She reports mild shortness of breath. She was weaned off her oxygen this morning. She remains on IV Lasix 40 mg every 12 hours. Creatinine today is increased to 1.88. 11/23/2023 Patient examined this morning at the bedside. Patient currently denies chest pain or pressure. She denies shortness of breath. She remains on IV Lasix. Creatinine decreased today to 1.77. PHYSICAL EXAM: VITAL SIGNS: Reviewed. GENERAL: Well-developed in no acute distress. NECK: Supple. No JVD or thyromegaly LUNGS: Respirations even and unlabored. Lungs diminished at the bases. HEART: Regular rate and rhythm. S1 and S2 heard. Systolic murmur noted. EXTREMITIES: Normal range of motion. No clubbing or cyanosis. Peripheral pulses intact. Trace bilateral lower extremity edema ASSESSMENT: Shortness of breath Acute heart failure with preserved ejection fraction Acute kidney injury Hypertension Diabetes Morbid obesity PLAN: Continue current cardiac medications Discontinue IV Lasix. Begin oral Lasix 40 mg daily Daily weights, accurate I&O, and monitoring of kidney function Discontinue Entresto secondary to rising creatinine and echo revealing preserved LV systolic function Stable for discharge from a cardiac standpoint Nurse practitioner note has been reviewed by physician. Signing provider agrees with the documented findings, assessment, and plan of care. Objective - Vital Signs Vital signs: Vital Signs Temp 98.1 F 11/23/23 08:10 Pulse 57 L 11/23/23 08:10 Resp 18 11/23/23 08:10 BP 158/67 11/23/23 08:10 Pulse Ox 97 11/23/23 08:10 FiO2 Intake & Output 11/22/23 11/23/23 11/23/23 18:59 06:59 18:59 Intake Total 762 540 118 Output Total 1400 500 Balance -638 40 118 Weight 98.9 kg Intake: Oral 762 540 118 Output: Urine 1400 500 Other: Voiding Method External Catheter External Catheter External Catheter - Labs CBC & Chem 7: 11/20/23 04:00 11/23/23 07:25 Labs: Abnormal Lab Results - Last 24 Hours (Table) 11/22/23 11/22/23 11/22/23 Range/Units 11:54 16:59 20:03 Sodium (137-145) mmol/L Chloride (98-107) mmol/L BUN (7-17) mg/dL Creatinine (0.52-1.04) mg/dL Glucose (74-99) mg/dL POC Glucose (mg/dL) 113 H 141 H 183 H (70-110) mg/dL 11/23/23 11/23/23 Range/Units 06:02 07:25 Sodium 132 L (137-145) mmol/L Chloride 96 L (98-107) mmol/L BUN 57 H (7-17) mg/dL Creatinine 1.77 H (0.52-1.04) mg/dL Glucose 154 H (74-99) mg/dL POC Glucose (mg/dL) 173 H (70-110) mg/dL
[2023-11-23 11:28] LABS: Glucose,Whole Blood 148 mg/dL (70-110)
[2023-11-23] MEDS: SPIRONOLACTONE 25 MG TAB PO SCH (12:28)
[2023-11-23 17:04] LABS: Glucose,Whole Blood 133 mg/dL (70-110)
[2023-11-23 20:13] LABS: Glucose,Whole Blood 203 mg/dL (70-110)
--- NOTE | 2023-11-24 05:28 | PN ---
PROGRESS NOTE DATE OF SERVICE: 11/23/2023 CHIEF COMPLAINT: Congestive heart failure. HISTORY OF PRESENT ILLNESS: This lady is doing little bit better. She believes her breathing is better. She denies chest pain. PHYSICAL EXAMINATION: CHEST: Quite clear now. CARDIAC: Unremarkable. ABDOMEN: Soft, nontender. IMPRESSION: Acute congestive heart failure. PLAN: 1. Continue with current treatment. 2. Start to address her blood sugars which are rising slightly occasionally. 3. Repeat laboratory studies. 4. Make sure that she is on SGL2. She would also benefit from the GLP-1, but none are on formulary. 5. Increase activity. 6. Add spironolactone 25 mg once a day. 7. Start Entresto b.i.d. and continue to monitor her symptoms and blood pressure. MMODL / IJN: [id number] /
[2023-11-24 06:05] LABS: Glucose,Whole Blood 190 mg/dL (70-110)
[2023-11-24] MEDS ORDERED: SENNOSIDES-DOCUSATE SODIUM 1 EACH TAB PO STA (09:46)
[2023-11-24] MEDS: ISOSORBIDE MONONITRATE ER 30 MG TAB.ER.24H PO SCH (09:52)
[2023-11-24] MEDS: DAPAGLIFLOZIN PROPANEDIOL 10 MG TABLET PO SCH (09:52)
[2023-11-24] MEDS: ASPIRIN 81 MG PO SCH (09:52)
[2023-11-24] MEDS: FUROSEMIDE 40 MG TAB PO SCH (09:52)
[2023-11-24] MEDS: SPIRONOLACTONE 25 MG TAB PO SCH (09:52)
[2023-11-24] MEDS: hydrALAZINE HCL 25 MG TAB PO SCH ×2 (09:52→21:12)
[2023-11-24] MEDS: ATORVASTATIN 20 MG TAB PO SCH (09:52)
[2023-11-24] MEDS: BISOPROLOL-HCTZ 10-6.25 MG 1 EACH TAB PO SCH (09:52)
[2023-11-24] MEDS: polyethylene glycoL 3350 17 GM POWD.PACK PO SCH (09:52)
[2023-11-24 11:30] LABS: Glucose,Whole Blood 168 mg/dL (70-110)
--- NOTE | 2023-11-24 12:22 | P.PN ---
Subjective HISTORY OF PRESENT ILLNESS: 11/21/23 This is a pleasant 88-year-old female with a past history of hypertension and diabetes. 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 History of heart murmur noted during an office visit with her primary care provider about a year ago. He presented to the emergency department with progressively worsening shortness of breath. She was struggling to climb stairs and had issues including even to the bathroom also had some orthopnea and mildly worsening lower extremity edema. BNP was over 5000 and chest x-ray showed cardiomegaly with diffuse pulmonary edema. Then initiated on IV Lasix. Edema has improved some and her breathing is significantly better. Blood pressure remained elevated she is currently on amlodipine as well as bisoprolol and hydrochlorothiazide. She was on Actos at home for diabetes. 11/22/2023 Patient examined this morning at the bedside. Patient currently denies chest pain or pressure. She reports mild shortness of breath. She was weaned off her oxygen this morning. She remains on IV Lasix 40 mg every 12 hours. Creatinine today is increased to 1.88. 11/23/2023 Patient examined this morning at the bedside. Patient currently denies chest pain or pressure. She denies shortness of breath. She remains on IV Lasix. Creatinine decreased today to 1.77. 11/24/2023 Patient examined this morning at the bedside. She denies chest pain or pressure. She denies shortness of breath. She may then oral Lasix. She is on room air with oxygen saturations greater than 92%. She is complaining of constipation and is having examination. She is hoping to be discharged today. PHYSICAL EXAM: VITAL SIGNS: Reviewed. GENERAL: Well-developed in no acute distress. NECK: Supple. No JVD or thyromegaly LUNGS: Respirations even and unlabored. Lungs diminished at the bases. HEART: Regular rate and rhythm. S1 and S2 heard. Systolic murmur noted. EXTREMITIES: Normal range of motion. No clubbing or cyanosis. Peripheral pulses intact. Trace bilateral lower extremity edema ASSESSMENT: Shortness of breath Acute heart failure with preserved ejection fraction Acute kidney injury Hypertension Diabetes Morbid obesity PLAN: Continue current cardiac medications Do not resume Entresto secondary to rising creatinine and echo revealing preserved LV systolic function Stable for discharge from a cardiac standpoint Nurse practitioner note has been reviewed by physician. Signing provider agrees with the documented findings, assessment, and plan of care. Objective - Vital Signs Vital signs: Vital Signs Temp 98.1 F 11/24/23 09:50 Pulse 58 L 11/24/23 09:50 Resp 18 11/24/23 09:50 BP 149/63 11/24/23 09:50 Pulse Ox 95 11/24/23 09:50 FiO2 Intake & Output 11/23/23 11/24/23 11/24/23 18:59 06:59 18:59 Intake Total 520 240 Output Total 1350 1075 450 Balance -830 -1075 -210 Weight 102 kg Intake: Oral 520 240 Output: Urine 1350 1075 450 Other: Voiding Method External Catheter External Catheter External Catheter # Bowel Movements 0 - Labs CBC & Chem 7: 11/20/23 04:00 11/23/23 07:25 Labs: Abnormal Lab Results - Last 24 Hours (Table) 11/23/23 11/23/23 11/24/23 Range/Units 16:59 20:11 06:03 POC Glucose (mg/dL) 133 H 203 H 190 H (70-110) mg/dL 11/24/23 Range/Units 11:28 POC Glucose (mg/dL) 168 H (70-110) mg/dL
[2023-11-24 16:40] LABS: Glucose,Whole Blood 174 mg/dL (70-110)
[2023-11-24 20:08] LABS: Glucose,Whole Blood 194 mg/dL (70-110)
[2023-11-25 06:14] LABS: Glucose,Whole Blood 170 mg/dL (70-110)
[2023-11-25] MEDS: SPIRONOLACTONE 25 MG TAB PO SCH (08:40)
[2023-11-25] MEDS: ASPIRIN 81 MG PO SCH (08:40)
[2023-11-25] MEDS: ATORVASTATIN 20 MG TAB PO SCH (08:40)
[2023-11-25] MEDS: ISOSORBIDE MONONITRATE ER 30 MG TAB.ER.24H PO SCH (08:40)
[2023-11-25] MEDS: FUROSEMIDE 40 MG TAB PO SCH (08:40)
[2023-11-25] MEDS: BISOPROLOL-HCTZ 10-6.25 MG 1 EACH TAB PO SCH (08:41)
[2023-11-25] MEDS: DAPAGLIFLOZIN PROPANEDIOL 10 MG TABLET PO SCH (08:41)
[2023-11-25] MEDS: hydrALAZINE HCL 25 MG TAB PO SCH ×3 (08:41→21:33)
[2023-11-25] MEDS: polyethylene glycoL 3350 17 GM POWD.PACK PO SCH (08:41)
[2023-11-25 11:20] LABS: Glucose,Whole Blood 288 mg/dL (70-110)
[2023-11-25] MEDS ORDERED: DEXTROSE 50% SYRINGE 50 ML IVP PRN ×2 (12:12)
[2023-11-25] MEDS ORDERED: INSULIN DETEMIR (LEVEMIR) 100 UNIT/ML SYR SQ STA (12:14)
[2023-11-25] MEDS: INSULIN ASPART (NovoLOG) 100 UNIT/ML VIAL SQ SCH ×3 (12:33→21:33)
[2023-11-25 16:15] LABS: Glucose,Whole Blood 84 mg/dL (70-110)
[2023-11-25] MEDS: carvediloL 12.5 MG TAB PO SCH (16:49)
[2023-11-25 20:10] LABS: Glucose,Whole Blood 155 mg/dL (70-110)
--- NOTE | 2023-11-25 20:25 | P.PN ---
Subjective Progress Note Date: 11/25/23 HISTORY OF PRESENT ILLNESS: 11/21/23 This is a pleasant 88-year-old female with a past history of hypertension and diabetes. 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 History of heart murmur noted during an office visit with her primary care provider about a year ago. He presented to the emergency department with progressively worsening shortness of breath. She was struggling to climb stairs and had issues including even to the bathroom also had some orthopnea and mildly worsening lower extremity edema. BNP was over 5000 and chest x-ray showed cardiomegaly with diffuse pulmonary edema. Then initiated on IV Lasix. Edema has improved some and her breathing is significantly better. Blood pressure remained elevated she is currently on amlodipine as well as bisoprolol and hydrochlorothiazide. She was on Actos at home for diabetes. 11/22/2023 Patient examined this morning at the bedside. Patient currently denies chest pain or pressure. She reports mild shortness of breath. She was weaned off her oxygen this morning. She remains on IV Lasix 40 mg every 12 hours. Creatinine today is increased to 1.88. 11/23/2023 Patient examined this morning at the bedside. Patient currently denies chest pain or pressure. She denies shortness of breath. She remains on IV Lasix. Creatinine decreased today to 1.77. 11/24/2023 Patient examined this morning at the bedside. She denies chest pain or pressure. She denies shortness of breath. She may then oral Lasix. She is on room air with oxygen saturations greater than 92%. She is complaining of constipation and is having examination. She is hoping to be discharged today. 11/25/23 Patient is seen and examined at bedside the same. Patient denies having any active chest pain chest pressure shortness of breath. She appears to be euvolemic and he managed on current regimen. She is noticed to be hypertensive today and patient's primary care physician increased her antihypertensive regimen by adding hydralazine. PHYSICAL EXAM: VITAL SIGNS: Reviewed. GENERAL: Well-developed in no acute distress. NECK: Supple. No JVD or thyromegaly LUNGS: Respirations even and unlabored. Lungs diminished at the bases. HEART: Regular rate and rhythm. S1 and S2 heard. Systolic murmur noted. EXTREMITIES: Normal range of motion. No clubbing or cyanosis. Peripheral pulses intact. Trace bilateral lower extremity edema ASSESSMENT: Shortness of breath Acute heart failure with preserved ejection fraction Acute kidney injury Hypertension Diabetes Morbid obesity PLAN: I would agree with addition of hydralazine 25 mg every 4 hours along with Imdur 30 mg daily. Continue Coreg, Farxiga, aspirin, atorvastatin Lasix 40 mg daily PO Do not resume and Entreso on discharge Stable to be discharged from cardiac standpoint. Cardiology team will sign off at this time. Patient is recommended to follow up outpatient Objective - Vital Signs Vital signs: Vital Signs Temp 97.8 F 11/25/23 19:39 Pulse 59 L 11/25/23 19:39 Resp 18 11/25/23 19:39 BP 180/55 11/25/23 19:39 Pulse Ox 95 11/25/23 19:39 FiO2 Intake & Output 11/25/23 11/25/23 11/26/23 06:59 18:59 06:59 Intake Total 240 598 Balance 240 598 Weight 98.7 kg Intake: Oral 240 598 Other: # Voids 1 2 # Bowel Movements 1 1 - Labs CBC & Chem 7: 11/20/23 04:00 11/23/23 07:25 Labs: Abnormal Lab Results - Last 24 Hours (Table) 11/25/23 11/25/23 11/25/23 Range/Units 06:13 11:18 20:09 POC Glucose (mg/dL) 170 H 288 H 155 H (70-110) mg/dL
--- NOTE | 2023-11-26 03:17 | PN ---
PROGRESS NOTE DATE OF SERVICE: 11/24/2023 CHIEF COMPLAINT: Acute congestive heart failure. HISTORY OF PRESENT ILLNESS: This lady is doing a little bit better. Each day she seems to be improved. It is noted that her blood sugars have been rising and her blood pressure as well. PHYSICAL EXAMINATION: GENERAL: She feels a little bit better and less short of breath. She has had no chest pain. CHEST: Clear except for a few rales at the bases. CARDIAC: Normal. ABDOMEN: Soft and nontender. IMPRESSION: 1. Acute congestive heart failure. 2. Hypertension. 3. Elevated blood sugars. PLAN: Continue to monitor her vital signs and blood sugars. Increase activity and probably home soon. MMODL / IJN: [id number] /
--- NOTE | 2023-11-26 03:19 | PN ---
PROGRESS NOTE DATE OF SERVICE: 11/25/2023 CHIEF COMPLAINT: Congestive heart failure. HISTORY OF PRESENT ILLNESS: This lady feels much better today. However, her blood sugars have been rising as are her blood pressures. Her GFR was normal, but it has also dropped down slightly. PHYSICAL EXAMINATION: CHEST: Quite clear. There are very few rales or rhonchi. CARDIAC: Unremarkable except for murmur. ABDOMEN: Soft and nontender. EXTREMITIES: Normal. IMPRESSION: 1. Acute congestive heart failure. 2. Hypertension. 3. Renal failure. 4. Diabetes. PLAN: 1. Stop Aldactone. 2. Increase hydralazine from 25 mg b.i.d. to q.i.d. 3. Stop bisoprolol/hydrochlorothiazide and start carvedilol 12.5 mg twice a day. MMODL / IJN: [id number] /
[2023-11-26 06:05] LABS: Glucose,Whole Blood 157 mg/dL (70-110)
[2023-11-26] MEDS: INSULIN DETEMIR (LEVEMIR) 100 UNIT/ML SYR SQ SCH (06:16)
[2023-11-26] MEDS: INSULIN ASPART (NovoLOG) 100 UNIT/ML VIAL SQ SCH ×4 (06:16→21:14)
[2023-11-26] MEDS: carvediloL 12.5 MG TAB PO SCH ×2 (06:16→17:07)
[2023-11-26] MEDS: ASPIRIN 81 MG PO SCH (08:15)
[2023-11-26] MEDS: ATORVASTATIN 20 MG TAB PO SCH (08:15)
[2023-11-26] MEDS: polyethylene glycoL 3350 17 GM POWD.PACK PO SCH (08:15)
[2023-11-26] MEDS: ISOSORBIDE MONONITRATE ER 30 MG TAB.ER.24H PO SCH (08:15)
[2023-11-26] MEDS: FUROSEMIDE 40 MG TAB PO SCH (08:15)
[2023-11-26] MEDS: DAPAGLIFLOZIN PROPANEDIOL 10 MG TABLET PO SCH (08:15)
[2023-11-26] MEDS: hydrALAZINE HCL 25 MG TAB PO SCH ×2 (08:15→12:17)
[2023-11-26 11:53] LABS: Glucose,Whole Blood 158 mg/dL (70-110)
[2023-11-26 16:18] LABS: Glucose,Whole Blood 209 mg/dL (70-110)
[2023-11-26] MEDS: hydrALAZINE HCL 50 MG TAB PO SCH ×2 (17:08→21:25)
--- NOTE | 2023-11-26 18:45 | P.PN ---
Subjective Progress Note Date: 11/26/23 HISTORY OF PRESENT ILLNESS: 11/21/23 This is a pleasant 88-year-old female with a past history of hypertension and diabetes. 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 History of heart murmur noted during an office visit with her primary care provider about a year ago. He presented to the emergency department with progressively worsening shortness of breath. She was struggling to climb stairs and had issues including even to the bathroom also had some orthopnea and mildly worsening lower extremity edema. BNP was over 5000 and chest x-ray showed cardiomegaly with diffuse pulmonary edema. Then initiated on IV Lasix. Edema has improved some and her breathing is significantly better. Blood pressure remained elevated she is currently on amlodipine as well as bisoprolol and hydrochlorothiazide. She was on Actos at home for diabetes. 11/22/2023 Patient examined this morning at the bedside. Patient currently denies chest pain or pressure. She reports mild shortness of breath. She was weaned off her oxygen this morning. She remains on IV Lasix 40 mg every 12 hours. Creatinine today is increased to 1.88. 11/23/2023 Patient examined this morning at the bedside. Patient currently denies chest pain or pressure. She denies shortness of breath. She remains on IV Lasix. Creatinine decreased today to 1.77. 11/24/2023 Patient examined this morning at the bedside. She denies chest pain or pressure. She denies shortness of breath. She may then oral Lasix. She is on room air with oxygen saturations greater than 92%. She is complaining of constipation and is having examination. She is hoping to be discharged today. 11/25/23 Patient is seen and examined at bedside the same. Patient denies having any active chest pain chest pressure shortness of breath. She appears to be euvolemic and he managed on current regimen. She is noticed to be hypertensive today and patient's primary care physician increased her antihypertensive regimen by adding hydralazine. 11/26/23 Patient is seen and examined at bedside the same. She appears euvolemic but continues to have elevated blood pressure. For this hydralazine dose has been increased. We will continue to monitor blood pressure PHYSICAL EXAM: VITAL SIGNS: Reviewed. GENERAL: Well-developed in no acute distress. NECK: Supple. No JVD or thyromegaly LUNGS: Respirations even and unlabored. Lungs diminished at the bases. HEART: Regular rate and rhythm. S1 and S2 heard. Systolic murmur noted. EXTREMITIES: Normal range of motion. No clubbing or cyanosis. Peripheral pulses intact. Trace bilateral lower extremity edema ASSESSMENT: Shortness of breath Acute heart failure with preserved ejection fraction Acute kidney injury Hypertension Diabetes Morbid obesity PLAN: She appears euvolemic but continues to have elevated blood pressure. For this hydralazine dose has been increased. We will continue to monitor blood pressure, was stable she should be okay to be discharged from cardiac vessel standpoint. I would agree with addition of hydralazine 100 mg every 4 hours along with Imdur 30 mg daily. Continue Coreg, Farxiga, aspirin, atorvastatin Lasix 40 mg daily PO Do not resume Entreso on discharge Stable to be discharged from cardiac standpoint. Cardiology team will sign off at this time. Patient is recommended to follow up outpatient Objective - Vital Signs Vital signs: Vital Signs Temp 97.9 F 11/26/23 17:03 Pulse 61 11/26/23 17:03 Resp 16 11/26/23 17:03 BP 164/63 11/26/23 17:03 Pulse Ox 96 11/26/23 17:03 FiO2 Intake & Output 11/25/23 11/26/23 11/26/23 18:59 06:59 18:59 Intake Total 598 540 716 Balance 598 540 716 Weight 98.7 kg Intake: Oral 598 540 716 Other: Voiding Method Toilet # Voids 2 2 1 # Bowel Movements 1 - Labs CBC & Chem 7: 11/20/23 04:00 11/23/23 07:25 Labs: Abnormal Lab Results - Last 24 Hours (Table) 11/25/23 11/26/23 11/26/23 Range/Units 20:09 06:04 11:51 POC Glucose (mg/dL) 155 H 157 H 158 H (70-110) mg/dL 11/26/23 Range/Units 16:17 POC Glucose (mg/dL) 209 H (70-110) mg/dL
[2023-11-26 20:23] LABS: Glucose,Whole Blood 139 mg/dL (70-110)
[2023-11-27 06:08] LABS: Glucose,Whole Blood 162 mg/dL (70-110)
[2023-11-27] MEDS: carvediloL 12.5 MG TAB PO SCH ×2 (06:26→16:37)
[2023-11-27] MEDS: INSULIN DETEMIR (LEVEMIR) 100 UNIT/ML SYR SQ SCH (06:26)
[2023-11-27] MEDS: INSULIN ASPART (NovoLOG) 100 UNIT/ML VIAL SQ SCH ×4 (06:26→21:14)
[2023-11-27] MEDS: polyethylene glycoL 3350 17 GM POWD.PACK PO SCH (09:14)
[2023-11-27] MEDS: FUROSEMIDE 40 MG TAB PO SCH (09:16)
[2023-11-27] MEDS: hydrALAZINE HCL 50 MG TAB PO SCH ×3 (09:16→21:14)
[2023-11-27] MEDS: DAPAGLIFLOZIN PROPANEDIOL 10 MG TABLET PO SCH (09:16)
[2023-11-27] MEDS: ISOSORBIDE MONONITRATE ER 30 MG TAB.ER.24H PO SCH (09:16)
[2023-11-27] MEDS: ASPIRIN 81 MG PO SCH (09:16)
[2023-11-27] MEDS: ATORVASTATIN 20 MG TAB PO SCH (09:17)
[2023-11-27 11:28] LABS: Glucose,Whole Blood 193 mg/dL (70-110)
[2023-11-27 16:20] LABS: Glucose,Whole Blood 125 mg/dL (70-110)
[2023-11-27 20:14] LABS: Glucose,Whole Blood 178 mg/dL (70-110)
[2023-11-28 06:08] LABS: Glucose,Whole Blood 170 mg/dL (70-110)
[2023-11-28] MEDS: INSULIN DETEMIR (LEVEMIR) 100 UNIT/ML SYR SQ SCH (06:25)
[2023-11-28] MEDS: carvediloL 12.5 MG TAB PO SCH (06:25)
[2023-11-28] MEDS: INSULIN ASPART (NovoLOG) 100 UNIT/ML VIAL SQ SCH ×2 (06:25→12:08)
[2023-11-28] MEDS: polyethylene glycoL 3350 17 GM POWD.PACK PO SCH (09:13)
[2023-11-28] MEDS: ATORVASTATIN 20 MG TAB PO SCH (09:13)
[2023-11-28] MEDS: ISOSORBIDE MONONITRATE ER 30 MG TAB.ER.24H PO SCH (09:13)
[2023-11-28] MEDS: DAPAGLIFLOZIN PROPANEDIOL 10 MG TABLET PO SCH (09:13)
[2023-11-28] MEDS: hydrALAZINE HCL 50 MG TAB PO SCH (09:13)
[2023-11-28] MEDS: FUROSEMIDE 40 MG TAB PO SCH (09:13)
[2023-11-28] MEDS: ASPIRIN 81 MG PO SCH (09:13)
[2023-11-28 11:01] VITALS: RESP 16; TEMP 98
[2023-11-28 11:40] LABS: Glucose,Whole Blood 127 mg/dL (70-110)
[2023-11-28 13:07] VITALS: BP 168/63; PULSE 59
[2023-11-28] MEDS ORDERED: carvediloL 12.5 MG TAB PO SCH (17:30)
--- NOTE | 2023-11-28 20:59 | DS ---
DISCHARGE SUMMARY CHIEF COMPLAINT: Shortness of breath. HISTORY OF PRESENT ILLNESS AND PHYSICAL EXAMINATION: Details of this lady's history and physical can be found in the initial workup. LABORATORY STUDIES: While she was in the hospital, she had laboratory studies, details of which can be found in the laboratory section of her chart. COURSE IN THE HOSPITAL: After admission, she was placed on bedrest, started on intravenous fluids, and started on diuretics. She was seen and followed by Cardiology. Her congestive heart failure improved slowly over a number of days. However, her sugars started to rise as did her blood pressure. All of these issues were addressed and finally came under good enough control. It was felt that she go home. She will go home on light activity about the house. No added salt diet and will be seen in the office in several days. FINAL DIAGNOSES: 1. Acute congestive heart failure. 2. Chronic congestive heart failure. 3. Essential hypertension. 4. Diabetes mellitus. OPERATIONS: None. CONSULTATIONS: Cardiology. She is improved. MMODL / IJN: [id number] /
--- NOTE | 2023-11-29 02:32 | PN ---
PROGRESS NOTE DATE OF SERVICE: 11/26/2023 CHIEF COMPLAINT: Heart failure. HISTORY OF PRESENT ILLNESS: This lady is doing fairly well, but her blood pressures are climbing. She denies chest pain, headache, fever, shortness of breath. She feels like she is doing much better. PHYSICAL EXAMINATION: CHEST: Quite clear. CARDIAC: Normal. ABDOMEN: Soft, nontender. EXTREMITIES: Normal. IMPRESSION: 1. Congestive heart failure. 2. Uncontrolled hypertension. 3. Elevated blood sugars. PLAN: Continue to address elevated blood pressure and, hopefully, discharge soon. MMODL / IJN: [id number] /
[2023-11-29] MEDS ORDERED: INSULIN DETEMIR (LEVEMIR) 100 UNIT/ML SYR SQ SCH (07:00)
--- NOTE | 2023-11-30 07:31 | PN ---
PROGRESS NOTE CHIEF COMPLAINT: Congestive heart failure. HISTORY OF PRESENT ILLNESS: This lady is doing fairly well, but her blood pressures are still slightly elevated above ideal and blood sugars are as well. She is receiving insulin and she is also being given increased doses of antihypertensives. She is doing well in terms of breathing. She has no significant shortness of breath or chest pain. PHYSICAL EXAMINATION: VITAL SIGNS: Blood pressure is elevated with systolic around 165. CHEST: Quite clear. CARDIAC: Unremarkable. ABDOMEN: Soft and nontender. PLAN: Increase antihypertensives and probably home once her blood pressure reaches desired levels. MMODL / IJN: [id number] /
== END 2023-11-28 14:50 | disposition home health service (06) | DRG 291 ==
LOC: EC 03:52 → 3SCARD 06:40 → 3NCARDOBS 11-22 22:54 → 3SCARD 11-22 22:56
PROVIDERS: ADMIT Family Medicine; ATTEND Family Medicine
DX: I11.0 Hypertensive heart disease with heart failure (principal); I50.33 Acute on chronic diastolic (congestive) heart failure; N17.9 Acute kidney failure, unspecified; E11.65 Type 2 diabetes mellitus with hyperglycemia; E66.01 Morbid (severe) obesity due to excess calories; Z68.32 Body mass index [BMI] 32.0-32.9, adult; K59.00 Constipation, unspecified; Z79.82 Long term (current) use of aspirin; Z79.84 Long term (current) use of oral hypoglycemic drugs; Z79.899 Other long term (current) drug therapy; Z71.3 Dietary counseling and surveillance; Z88.2 Allergy status to sulfonamides
CPT/HCPCS: 36415; 71045; 78582; 80048; 80053; 80061; 83036; 83605; 83880; 84145; 84443; 84484; 85025; 85379; 85610; 85730; 87636; 93005; 93306; 96374; 96375; 99285

== ENCOUNTER 2023-11-30 17:17 | Observation (INO) | payer MEDICARE ==
--- NOTE | 2023-11-30 17:55 | ED ---
SOB HPI - General Source: patient Mode of arrival: ambulatory Limitations: no limitations <Vonda Ortez - Last Filed: 11/30/23 17:53> - General Source: patient, RN notes reviewed Mode of arrival: ambulatory Limitations: no limitations <Flaca Shelton - Last Filed: 12/01/23 01:59> - General Stated Complaint: SOB Time Seen by Provider: 11/30/23 17:53 - History of Present Illness Initial Comments: The patient is a 88 old female presents emergency room for shortness breath. Patient very anxious in triage. O2 sat stable (Vonda Ortez) 88-year-old female presents to the emergency department for shortness of breath. She states that this started at 2 PM today. She states that she can't catch her breath. Patient admits to rapid breathing. Patient has a history of CHF and DM. Patient was recently admitted for similar symptoms and discharged on Monday. At that time patient requiring supplemental oxygen. States that she was off the oxygen for 1 day prior to discharge. She denies recent fever, chills, urinary symptoms. She does admit to some nausea without vomiting. She reports that she is eating and hydrating well. (Flaca Shelton) - Related Data Home Medications Medication Instructions Recorded Confirmed Simvastatin 40 mg PO DAILY 09/12/19 11/20/23 metFORMIN HCL [Glucophage] 1,000 mg PO BID 09/12/19 11/20/23 Ergocalciferol (Vitamin D2) 1,250 mcg PO QMONTHLY 11/20/23 11/20/23 [Drisdol (50,000 Iu)] Previous Rx's Medication Instructions Recorded Aspirin 81 mg PO DAILY #30 chew 09/14/19 Dapagliflozin Propanediol [Farxiga] 10 mg PO DAILY #30 tab 11/24/23 Furosemide [Lasix] 40 mg PO DAILY #30 tab 11/24/23 Isosorbide Mononitrate ER [Imdur] 30 mg PO DAILY #30 tab 11/24/23 Spironolactone [Aldactone] 25 mg PO DAILY #30 tab 11/24/23 Insulin Detemir (Levemir) [Levemir] 10 unit SQ DAILY@0700 #30 each 11/28/23 carvediloL [Coreg*] 25 mg PO BID-W/MEALS #60 tab 11/28/23 hydrALAZINE HCL [Apresoline] 100 mg PO TID #90 tab 11/28/23 polyethylene glycoL 3350 [Miralax] 17 gm PO DAILY #30 packet 11/28/23 Allergies Allergy/AdvReac Type Severity Reaction Status Date / Time Sulfa (Sulfonamide Allergy Swelling Verified 11/30/23 17:43 Antibiotics) Review of Systems ROS Other: All systems not noted in ROS Statement are negative. <Vonda Ortez - Last Filed: 11/30/23 17:53> ROS Other: All systems not noted in ROS Statement are negative. <Flaca Shelton - Last Filed: 12/01/23 01:59> ROS Statement: Those systems with pertinent positive or pertinent negative responses have been documented in the HPI. Past Medical History Past Medical History: Diabetes Mellitus, Hyperlipidemia, Hypertension History of Any Multi-Drug Resistant Organisms: None Reported Past Surgical History: Appendectomy, Hysterectomy Past Anesthesia/Blood Transfusion Reactions: No Reported Reaction Past Psychological History: No Psychological Hx Reported Smoking Status: Former smoker Past Alcohol Use History: None Reported Past Drug Use History: None Reported - Past Family History Father Family Medical History: No Reported History, Diabetes Mellitus Mother Family Medical History: Osteoarthritis (OA), Pneumonia <LilliamVonda carson - Last Filed: 11/30/23 17:53> General Exam Limitations: no limitations <LilliamyamilethVonda - Last Filed: 11/30/23 17:53> Limitations: no limitations General appearance: alert, other (tachypneic ) Head exam: Present: atraumatic, normocephalic, normal inspection Eye exam: Present: normal appearance, PERRL, EOMI. Absent: scleral icterus, conjunctival injection, periorbital swelling ENT exam: Present: normal exam, mucous membranes moist Neck exam: Present: normal inspection, full ROM. Absent: tenderness, meningismus, lymphadenopathy Respiratory exam: Present: wheezes (mild ), other (tachypnea ). Absent: respiratory distress, rales, rhonchi, stridor Cardiovascular Exam: Present: regular rate, normal rhythm, normal heart sounds. Absent: systolic murmur, diastolic murmur, rubs, gallop, clicks GI/Abdominal exam: Present: soft, normal bowel sounds. Absent: distended, tenderness, guarding, rebound, rigid Extremities exam: Present: normal inspection, full ROM, normal capillary refill. Absent: tenderness, pedal edema, joint swelling, calf tenderness Back exam: Present: normal inspection Neurological exam: Present: alert, oriented X3 Psychiatric exam: Present: normal affect, normal mood Skin exam: Present: warm, dry, intact, normal color. Absent: rash <Flaca Shelton - Last Filed: 12/01/23 01:59> - General Exam Comments Initial Comments: Visual Physical Exam Vital signs reviewed General: Well-appearing, nontoxic, no acute distress. Head: Normocephalic, atraumatic Eyes: PERRLA, EOMI ENT: Airway patent Chest: Nonlabored breathing Skin: No visual rash, normal skin tone Neuro: Alert and oriented 3 Musculoskeletal: No gross abnormalities (Vonda Ortez) Course Vital Signs 11/30/23 11/30/23 11/30/23 17:38 20:30 20:51 Temperature 98.2 F Pulse Rate 65 62 Respiratory 18 28 H 28 H Rate Blood Pressure 162/64 159/63 O2 Sat by Pulse 98 98 Oximetry 12/01/23 00:08 Temperature 97.9 F Pulse Rate 64 Respiratory 16 Rate Blood Pressure 124/90 O2 Sat by Pulse 99 Oximetry Medical Decision Making <Vonda Ortez - Last Filed: 11/30/23 17:53> - Lab Data Result diagrams: 11/30/23 17:47 11/30/23 17:47 <Flaca Shelton - Last Filed: 12/01/23 01:59> - Medical Decision Making Quick note portion completed by myself, Vonda Ortez PA-C (Vonda Ortez) Was pt. sent in by a medical professional or institution (ADONIS Macario, NUTRITION THERAPIST, urgent care, hospital, or jail...) When possible be specific @ -No Did you speak to anyone other than the patient for history (EMS, parent, family, police, friend...)? What history was obtained from this source @ -No Did you review nursing and triage notes (agree or disagree)? Why? @ -I reviewed and agree with nursing and triage notes Were old charts reviewed (outside hosp., previous admission, EMS record, old EKG, old radiological studies, urgent care reports/EKG's, jail records)? Report findings @ -Records from prior admission reviewed Differential Diagnosis (chest pain, altered mental status, abdominal pain women, abdominal pain men, vaginal bleeding, weakness, fever, dyspnea, syncope, headache, dizziness, GI bleed, back pain, seizure, CVA, palpatations, mental health, musculoskeletal)? @ -Differential Dyspnea: Coronary syndrome, arrhythmia, tamponade, asthma, COPD, pulmonary embolism, pneumonia, pneumothorax, pulmonary effusion, anaphylaxis, diabetic ketoacidosis, flailed chest, pulmonary contusion, diaphragmatic rupture, anemia, neuromuscular, this is not meant to be an all-inclusive list. EKG interpreted by me (3pts min.). @ -EKG at 1715 to sinus rhythm rate 67, IL 188, QRS 82, QTQTc [id number] X-rays interpreted by me (1pt min.). @ -Chest x-ray shows no acute infiltrate, improved CHF CT interpreted by me (1pt min.). @ -None done U/S interpreted by me (1pt. min.). @ -None done What testing was considered but not performed or refused? (CT, X-rays, U/S, labs)? Why? @ -None What meds were considered but not given or refused? Why? @ -None Did you discuss the management of the patient with other professionals (professionals i.e. , PA, NUTRITION THERAPIST, lab, RT, psych nurse, home health care social worker, civil division commander deputy sheriff, teacher, customs and immigration officer, bottle caser)? Give summary @ -Case discussed with Dr. Claros who is accepting of the admission Was smoking cessation discussed for >3mins.? @ -No Was critical care preformed (if so, how long)? @ -No Were there social determinants of health that impacted care today? How? (Homelessness, low income, unemployed, alcoholism, drug addiction, transportation, low edu. Level, literacy, decrease access to med. care, detention, rehab)? @ -No Was there de-escalation of care discussed even if they declined (Discuss DNR or withdrawal of care, Hospice)? DNR status @ -No What co-morbidities impacted this encounter? (DM, HTN, Smoking, COPD, CAD, Cancer, CVA, ARF, Chemo, Hep., AIDS, mental health diagnosis, sleep apnea, morbid obesity)? @ -None Was patient admitted / discharged? Hospital course, mention meds given and route, prescriptions, significant lab abnormalities, going to OR and other pertinent info. @ -Admitted. Patient presented to the emergency department for dyspnea. Laboratory studies obtained. CBC shows hemoglobin 10.9 which is a decrease from her prior visit. WBC 5.1. patient is hyponatremic with sodium 128. Patient acidotic with CO2 of 17, anion gap 16 likely why the patient is to contact.; BUN 67, creatinine 1.97 which is fairly elevated from her recent visit; blood sugar 206; negative troponin, BMP 2270 which is improved from her recent visit. Lactic acid 0.9, salicylates, Tylenol, serum alcohol negative. Covid, influenza, RSV negative. Case discussed with Dr. Claros patient will be admitted for her symptoms and gently hydrated. Patient is stable at time of admission. Case discussed with Dr. Holland Undiagnosed new problem with uncertain prognosis? @ -No Drug Therapy requiring intensive monitoring for toxicity (Heparin, Nitro, Insulin, Cardizem)? @ -No Were any procedures done? @ -No Diagnosis/symptom? @ -Tachypnea, metabolic acidosis Acute, or Chronic, or Acute on Chronic? @ -Acute Uncomplicated (without systemic symptoms) or Complicated (systemic symptoms)? @ -Uncomplicated Side effects of treatment? @ -No Exacerbation, Progression, or Severe Exacerbation? @ -No Poses a threat to life or bodily function? How? (Chest pain, USA, IL, pneumonia, PE, COPD, DKA, ARF, appy, cholecystitis, CVA, Diverticulitis, Homicidal, Suicidal, threat to staff... and all critical care pts) @ -No (Flaca Shelton) - Lab Data Lab Results 11/30/23 11/30/23 11/30/23 Range/Units 17:47 17:47 17:47 WBC 5.1 (3.8-10.6) k/uL RBC 3.71 L (3.80-5.40) m/uL Hgb 10.9 L (11.4-16.0) gm/dL Hct 32.2 L (34.0-46.0) % MCV 86.8 (80.0-100.0) fL MCH 29.4 (25.0-35.0) pg MCHC 33.8 (31.0-37.0) g/dL RDW 13.8 (11.5-15.5) % Plt Count 366 (150-450) k/uL MPV 7.4 Neutrophils % 61 % Lymphocytes % 23 % Monocytes % 11 % Eosinophils % 1 % Basophils % 0 % Neutrophils # 3.1 (1.3-7.7) k/uL Lymphocytes # 1.2 (1.0-4.8) k/uL Monocytes # 0.6 (0-1.0) k/uL Eosinophils # 0.0 (0-0.7) k/uL Basophils # 0.0 (0-0.2) k/uL PT 10.4 (10.0-12.5) sec INR 0.9 (<1.2) APTT 24.2 (22.0-30.0) sec Sodium 128 L (137-145) mmol/L Potassium 4.8 (3.5-5.1) mmol/L Chloride 95 L (98-107) mmol/L Carbon Dioxide 17 L (22-30) mmol/L Anion Gap 16 mmol/L BUN 67 H (7-17) mg/dL Creatinine 1.97 H (0.52-1.04) mg/dL Est GFR (CKD-EPI)AfAm 26 (>60 ml/min/1.73 sqM) Est GFR (CKD-EPI)NonAf 23 (>60 ml/min/1.73 sqM) Glucose 206 H (74-99) mg/dL Plasma Lactic Acid Dave (0.7-2.0) mmol/L Calcium 9.6 (8.4-10.2) mg/dL Total Bilirubin 0.5 (0.2-1.3) mg/dL AST 20 (14-36) U/L ALT 17 (4-34) U/L Alkaline Phosphatase 127 H (38-126) U/L Troponin I (0.000-0.034) ng/mL NT-Pro-B Natriuret Pep 2270 pg/mL Total Protein 7.4 (6.3-8.2) g/dL Albumin 4.1 (3.5-5.0) g/dL Salicylates mg/dL Acetaminophen ug/mL Serum Alcohol mg/dL Influenza Type A (PCR) (Not Detectd) Influenza Type B (PCR) (Not Detectd) RSV (PCR) (Not Detectd) SARS-CoV-2 (PCR) (Not Detectd) 11/30/23 11/30/23 11/30/23 Range/Units 17:47 17:47 22:31 WBC (3.8-10.6) k/uL RBC (3.80-5.40) m/uL Hgb (11.4-16.0) gm/dL Hct (34.0-46.0) % MCV (80.0-100.0) fL MCH (25.0-35.0) pg MCHC (31.0-37.0) g/dL RDW (11.5-15.5) % Plt Count (150-450) k/uL MPV Neutrophils % % Lymphocytes % % Monocytes % % Eosinophils % % Basophils % % Neutrophils # (1.3-7.7) k/uL Lymphocytes # (1.0-4.8) k/uL Monocytes # (0-1.0) k/uL Eosinophils # (0-0.7) k/uL Basophils # (0-0.2) k/uL PT (10.0-12.5) sec INR (<1.2) APTT (22.0-30.0) sec Sodium (137-145) mmol/L Potassium (3.5-5.1) mmol/L Chloride (98-107) mmol/L Carbon Dioxide (22-30) mmol/L Anion Gap mmol/L BUN (7-17) mg/dL Creatinine (0.52-1.04) mg/dL Est GFR (CKD-EPI)AfAm (>60 ml/min/1.73 sqM) Est GFR (CKD-EPI)NonAf (>60 ml/min/1.73 sqM) Glucose (74-99) mg/dL Plasma Lactic Acid Dave (0.7-2.0) mmol/L Calcium (8.4-10.2) mg/dL Total Bilirubin (0.2-1.3) mg/dL AST (14-36) U/L ALT (4-34) U/L Alkaline Phosphatase (38-126) U/L Troponin I <0.012 (0.000-0.034) ng/mL NT-Pro-B Natriuret Pep pg/mL Total Protein (6.3-8.2) g/dL Albumin (3.5-5.0) g/dL Salicylates <1.0 mg/dL Acetaminophen <10.0 ug/mL Serum Alcohol <10 mg/dL Influenza Type A (PCR) Not Detected (Not Detectd) Influenza Type B (PCR) Not Detected (Not Detectd) RSV (PCR) Not Detected (Not Detectd) SARS-CoV-2 (PCR) Not Detected (Not Detectd) 11/30/23 Range/Units 22:31 WBC (3.8-10.6) k/uL RBC (3.80-5.40) m/uL Hgb (11.4-16.0) gm/dL Hct (34.0-46.0) % MCV (80.0-100.0) fL MCH (25.0-35.0) pg MCHC (31.0-37.0) g/dL RDW (11.5-15.5) % Plt Count (150-450) k/uL MPV Neutrophils % % Lymphocytes % % Monocytes % % Eosinophils % % Basophils % % Neutrophils # (1.3-7.7) k/uL Lymphocytes # (1.0-4.8) k/uL Monocytes # (0-1.0) k/uL Eosinophils # (0-0.7) k/uL Basophils # (0-0.2) k/uL PT (10.0-12.5) sec INR (<1.2) APTT (22.0-30.0) sec Sodium (137-145) mmol/L Potassium (3.5-5.1) mmol/L Chloride (98-107) mmol/L Carbon Dioxide (22-30) mmol/L Anion Gap mmol/L BUN (7-17) mg/dL Creatinine (0.52-1.04) mg/dL Est GFR (CKD-EPI)AfAm (>60 ml/min/1.73 sqM) Est GFR (CKD-EPI)NonAf (>60 ml/min/1.73 sqM) Glucose (74-99) mg/dL Plasma Lactic Acid Dave 0.9 (0.7-2.0) mmol/L Calcium (8.4-10.2) mg/dL Total Bilirubin (0.2-1.3) mg/dL AST (14-36) U/L ALT (4-34) U/L Alkaline Phosphatase (38-126) U/L Troponin I (0.000-0.034) ng/mL NT-Pro-B Natriuret Pep pg/mL Total Protein (6.3-8.2) g/dL Albumin (3.5-5.0) g/dL Salicylates mg/dL Acetaminophen ug/mL Serum Alcohol mg/dL Influenza Type A (PCR) (Not Detectd) Influenza Type B (PCR) (Not Detectd) RSV (PCR) (Not Detectd) SARS-CoV-2 (PCR) (Not Detectd) Disposition <Vonda Ortez - Last Filed: 11/30/23 17:53> Is patient prescribed a controlled substance at d/c from ED?: No <Flaca Shelton - Last Filed: 12/01/23 01:59> Clinical Impression: Tachypnea, Acidosis Disposition: ADMITTED IP TO THIS HOSP Condition: Stable
[2023-11-30 18:16] LABS: INR 0.9 (<1.2); Partial Thromboplastin Time 24.2 sec (22.0-30.0); Prothrombin Time 10.4 sec (10.0-12.5)
[2023-11-30 18:18] LABS: Basophils % (A) 0 %; Eosinophils % (A) 1 %; HCT 32.2 % (34.0-46.0); HGB 10.9 gm/dL (11.4-16.0); Lymphocytes # (A) 1.2 k/uL (1.0-4.8); Lymphocytes % (A) 23 %; MCH 29.4 pg (25.0-35.0); MCHC 33.8 g/dL (31.0-37.0); MCV 86.8 fL (80.0-100.0); Mean Platelet Volume 7.4; Monocytes # (A) 0.6 k/uL (0-1.0); Monocytes % (A) 11 %; Neutrophils # (A) 3.1 k/uL (1.3-7.7); Neutrophils % (A) 61 %; Platelet Count 366 k/uL (150-450); RBC 3.71 m/uL (3.80-5.40); RDW 13.8 % (11.5-15.5); WBC 5.1 k/uL (3.8-10.6)
[2023-11-30 18:22] LABS: ALT 17 U/L (4-34); AST 20 U/L (14-36); African American GFR (CKD) 26 (>60 ml/min/1.73 sqM); Albumin 4.1 g/dL (3.5-5.0); Alkaline Phosphatase 127 U/L (38-126); Anion Gap 16 mmol/L; Blood Urea Nitrogen 67 mg/dL (7-17); Calcium 9.6 mg/dL (8.4-10.2); Carbon Dioxide 17 mmol/L (22-30); Chloride 95 mmol/L (98-107); Glucose 206 mg/dL (74-99); Non-African American GFR(CKD) 23 (>60 ml/min/1.73 sqM); Potassium 4.8 mmol/L (3.5-5.1); Sodium 128 mmol/L (137-145); Total Bilirubin 0.5 mg/dL (0.2-1.3); Total Protein 7.4 g/dL (6.3-8.2)
[2023-11-30 18:30] LABS: NT-Pro-B-Type Natriuretic Pept 2270 pg/mL
--- NOTE | 2023-11-30 18:34 | XR ---
EXAMINATION TYPE: XR chest 2V DATE OF EXAM: 11/30/2023 6:09 PM CLINICAL INDICATION:Female, 88 years old with history of difficulty breathing; [facility] COMPARISON: Chest radiographs from 11/15/2023. TECHNIQUE: XR chest 2V Frontal and lateral views of the chest. FINDINGS: Lungs/Pleura: There is no evidence of pleural effusion, focal consolidation, or pneumothorax. Pulmonary vascularity: Unremarkable. Heart/mediastinum: Cardiomediastinal silhouette is enlarged and stable. Atherosclerotic calcificatio ns are seen in the aorta. Musculoskeletal: No acute osseous pathology. Other findings: None IMPRESSION: 1. No acute cardiopulmonary disease/process. 2. Resolution of prior acute congestive heart failure.
[2023-11-30] MEDS ORDERED: SODIUM CHLORIDE 0.9% 1,000 ML IV ONE (22:00)
[2023-11-30] MEDS ORDERED: SODIUM CHLORIDE 0.9% 500 ML 500 ML IV ONE (22:07)
[2023-11-30 23:12] LABS: Acetaminophen <10.0 ug/mL; Alcohol <10 mg/dL; Salicylate <1.0 mg/dL
[2023-11-30] MEDS ORDERED: SODIUM CHLORIDE 0.9% 500 ML 500 ML IV STA (23:52)
[2023-11-30] MEDS ORDERED: SODIUM CHLORIDE 0.9% 1,000 ML IV STA (23:52)
[2023-11-30] MEDS ORDERED: ONDANSETRON 4 MG/2 ML VIAL IVP PRN (23:53)
[2023-11-30] MEDS ORDERED: NALOXONE 0.4 MG/ML 1 ML VIAL IV PRN (23:53)
[2023-12-01] MEDS ORDERED: DEXTROSE 50% SYRINGE 50 ML IVP PRN ×2 (00:12)
[2023-12-01 02:20] LABS: Appearance,Urine Clear (Clear); Bilirubin,Urine Negative (Negative); Blood,Urine Negative (Negative); Color,Urine Colorless; Glucose,Urine (UA) 3+ (Negative); Ketones,Urine Negative (Negative); Leukocyte Esterase,Urine Negative (Negative); Nitrite,Urine Negative (Negative); PH, Urine 6.5 (5.0-8.0); Protein,Urine Negative (Negative); Specific Gravity,Urine 1.006 (1.001-1.035); Urobilinogen,Urine <2.0 mg/dL (<2.0)
[2023-12-01] MEDS: MORPHINE SULFATE 4 MG/ML SYRINGE IV PRN (02:23)
[2023-12-01 06:23] LABS: Glucose,Whole Blood 162 mg/dL (70-110)
[2023-12-01] MEDS: INSULIN ASPART (NovoLOG) 100 UNIT/ML VIAL SQ SCH ×4 (07:00→22:58)
[2023-12-01 07:13] LABS: Basophils % (A) 0 %; Eosinophils # (A) 0.1 k/uL (0-0.7); Eosinophils % (A) 1 %; HCT 30.4 % (34.0-46.0); HGB 9.7 gm/dL (11.4-16.0); Lymphocytes # (A) 1.1 k/uL (1.0-4.8); Lymphocytes % (A) 24 %; MCH 28.4 pg (25.0-35.0); MCHC 31.8 g/dL (31.0-37.0); MCV 89.4 fL (80.0-100.0); Monocytes # (A) 0.5 k/uL (0-1.0); Monocytes % (A) 12 %; Neutrophils # (A) 2.5 k/uL (1.3-7.7); Neutrophils % (A) 58 %; Platelet Count 322 k/uL (150-450); WBC 4.3 k/uL (3.8-10.6)
[2023-12-01 07:26] LABS: ALT 15 U/L (4-34); AST 20 U/L (14-36); African American GFR (CKD) 32 (>60 ml/min/1.73 sqM); Albumin 3.5 g/dL (3.5-5.0); Alkaline Phosphatase 101 U/L (38-126); Anion Gap 11 mmol/L; Blood Urea Nitrogen 58 mg/dL (7-17); Calcium 9.1 mg/dL (8.4-10.2); Carbon Dioxide 19 mmol/L (22-30); Chloride 102 mmol/L (98-107); Glucose 159 mg/dL (74-99); Magnesium 2.2 mg/dL (1.6-2.3); Non-African American GFR(CKD) 28 (>60 ml/min/1.73 sqM); Phosphorus 5.1 mg/dL (2.5-4.5); Potassium 4.7 mmol/L (3.5-5.1); Sodium 132 mmol/L (137-145); Total Bilirubin 0.5 mg/dL (0.2-1.3); Total Protein 6.5 g/dL (6.3-8.2)
[2023-12-01 11:37] LABS: Glucose,Whole Blood 177 mg/dL (70-110)
[2023-12-01] MEDS: hydrALAZINE HCL 50 MG TAB PO SCH ×2 (16:39→23:00)
[2023-12-01 17:49] LABS: Glucose,Whole Blood 217 mg/dL (70-110)
[2023-12-01] MEDS: carvediloL 12.5 MG TAB PO SCH (17:59)
[2023-12-01 20:28] LABS: Glucose,Whole Blood 146 mg/dL (70-110)
[2023-12-01] MEDS ORDERED: metFORMIN 500 MG TAB PO SCH (21:00)
[2023-12-01] MEDS: NYSTATIN 100,000 UNIT/GM POWD 15 GM TOPICAL SCH (23:00)
--- NOTE | 2023-12-02 00:56 | HP ---
HISTORY AND PHYSICAL CHIEF COMPLAINT: Shortness of breath. HISTORY OF PRESENT ILLNESS: This is another admission for this 88-year-old white female, who was just in the hospital for a week or 10 days for congestive heart failure and hypertension. Blood sugars were also elevated. These were corrected and controlled and she was doing well and she went home. She apparently suddenly developed shortness of breath and came back into the emergency room in congestive heart failure. It has been determined that she did not get her medications when she left the hospital. REVIEW OF SYSTEMS: She has had no headaches, neurologic problems, chest pain, abdominal pain, focal neurologic deficits, etc. Past medical history, family history, and personal and social histories are unchanged. PHYSICAL EXAMINATION: VITAL SIGNS: Blood pressure is 139/74 with a pulse of 88 and regular. HEAD, EARS, EYES, NOSE, MOUTH, AND THROAT: Normal. Carotids are normal. CHEST: Clear. There are only occasional rales. CARDIAC: Demonstrated what sounded like sinus rhythm. ABDOMEN: Soft and nontender. EXTREMITIES: Normal. NEUROLOGIC: She is intact. IMPRESSION: She is admitted to the hospital with diagnoses of: 1. Acute on chronic congestive heart failure. 2. Hypertension. 3. Diabetes. PLAN: Resume inpatient management with diuresis, control hypertension and blood sugars. MMODL / IJN: [id number] /
[2023-12-02] MEDS: MORPHINE SULFATE 4 MG/ML SYRINGE IV PRN (01:27)
--- NOTE | 2023-12-02 07:23 | PN ---
PROGRESS NOTE DATE OF SERVICE: 12/01/2023 CHIEF COMPLAINT: Shortness of breath and heart failure. HISTORY OF PRESENT ILLNESS: This lady is doing a little bit better today. She is not short of breath. She denies chest pain. PHYSICAL EXAMINATION: CHEST: Demonstrates occasional rales. CARDIAC: Normal. ABDOMEN: Soft, nontender. IMPRESSION: 1. Acute congestive heart failure. 2. Chronic congestive heart failure. 3. Hypertension. 4. Diabetes. PLAN: Resume diuresis and manage her congestive heart failure while watching her blood pressure and blood sugars. MMODL / IJN: [id number] /
[2023-12-02 07:51] LABS: Glucose,Whole Blood 130 mg/dL (70-110)
[2023-12-02] MEDS: hydrALAZINE HCL 50 MG TAB PO SCH ×3 (08:11→22:14)
[2023-12-02] MEDS: INSULIN DETEMIR (LEVEMIR) 100 UNIT/ML SYR SQ SCH (08:11)
[2023-12-02] MEDS: ASPIRIN 81 MG PO SCH (08:11)
[2023-12-02] MEDS: carvediloL 12.5 MG TAB PO SCH ×2 (08:11→16:34)
[2023-12-02] MEDS: NYSTATIN 100,000 UNIT/GM POWD 15 GM TOPICAL SCH ×2 (08:11→22:13)
[2023-12-02] MEDS: polyethylene glycoL 3350 17 GM POWD.PACK PO SCH (08:12)
[2023-12-02] MEDS: ATORVASTATIN 20 MG TAB PO SCH (08:12)
[2023-12-02] MEDS: FUROSEMIDE 40 MG TAB PO SCH (08:12)
[2023-12-02] MEDS: INSULIN ASPART (NovoLOG) 100 UNIT/ML VIAL SQ SCH ×4 (08:12→22:11)
[2023-12-02] MEDS: ISOSORBIDE MONONITRATE ER 30 MG TAB.ER.24H PO SCH (08:12)
[2023-12-02] MEDS: SPIRONOLACTONE 25 MG TAB PO SCH (08:12)
[2023-12-02] MEDS: DAPAGLIFLOZIN PROPANEDIOL 10 MG TABLET PO SCH (08:12)
[2023-12-02 12:05] LABS: Glucose,Whole Blood 314 mg/dL (70-110)
[2023-12-02 17:24] LABS: Glucose,Whole Blood 121 mg/dL (70-110)
[2023-12-02 19:54] LABS: Glucose,Whole Blood 229 mg/dL (70-110)
[2023-12-03 07:51] LABS: Glucose,Whole Blood 156 mg/dL (70-110)
[2023-12-03] MEDS: hydrALAZINE HCL 50 MG TAB PO SCH ×3 (08:29→21:55)
[2023-12-03] MEDS: ASPIRIN 81 MG PO SCH (08:29)
[2023-12-03] MEDS: ISOSORBIDE MONONITRATE ER 30 MG TAB.ER.24H PO SCH (08:29)
[2023-12-03] MEDS: carvediloL 12.5 MG TAB PO SCH ×2 (08:29→18:04)
[2023-12-03] MEDS: FUROSEMIDE 40 MG TAB PO SCH (08:29)
[2023-12-03] MEDS: DAPAGLIFLOZIN PROPANEDIOL 10 MG TABLET PO SCH (08:29)
[2023-12-03] MEDS: INSULIN ASPART (NovoLOG) 100 UNIT/ML VIAL SQ SCH ×4 (08:29→20:37)
[2023-12-03] MEDS: SPIRONOLACTONE 25 MG TAB PO SCH (08:29)
[2023-12-03] MEDS: polyethylene glycoL 3350 17 GM POWD.PACK PO SCH (08:30)
[2023-12-03] MEDS: NYSTATIN 100,000 UNIT/GM POWD 15 GM TOPICAL SCH ×2 (08:30→21:55)
[2023-12-03] MEDS: ATORVASTATIN 20 MG TAB PO SCH (09:05)
[2023-12-03] MEDS: INSULIN DETEMIR (LEVEMIR) 100 UNIT/ML SYR SQ SCH (09:05)
[2023-12-03] MEDS ORDERED: busPIRone HCl 5 MG TAB PO PRN (11:39)
[2023-12-03 11:44] LABS: Glucose,Whole Blood 237 mg/dL (70-110)
[2023-12-03 17:15] LABS: Glucose,Whole Blood 128 mg/dL (70-110)
[2023-12-03] MEDS ORDERED: BENZOCAINE/MENTHOL LOZENG 1 EACH LOZENGE MUCOUS MEM PRN (17:34)
[2023-12-03 20:35] LABS: Glucose,Whole Blood 121 mg/dL (70-110)
--- NOTE | 2023-12-04 03:43 | PN ---
PROGRESS NOTE DATE OF SERVICE: 12/03/2023 CHIEF COMPLAINT: Shortness of breath and congestive heart failure. HISTORY OF PRESENT ILLNESS: This lady seems to be doing fairly well. Most of her studies suggest that her cardiac function is adequate. She keeps talking about all the problems she has and anxiety and this may be her problem. PHYSICAL EXAMINATION: CHEST: She has rales at the bases. CARDIAC: Otherwise normal. ABDOMEN: Soft, nontender. IMPRESSION: 1. Congestive heart failure. 2. Anxiety. PLAN: Possibly discharge tomorrow. MMODL / IJN: [id number] /
[2023-12-04 07:06] LABS: Glucose,Whole Blood 143 mg/dL (70-110)
[2023-12-04] MEDS: INSULIN ASPART (NovoLOG) 100 UNIT/ML VIAL SQ SCH ×3 (07:53→17:19)
[2023-12-04 08:43] VITALS: PULSE 61
[2023-12-04] MEDS: polyethylene glycoL 3350 17 GM POWD.PACK PO SCH (09:34)
[2023-12-04] MEDS: INSULIN DETEMIR (LEVEMIR) 100 UNIT/ML SYR SQ SCH (09:35)
[2023-12-04] MEDS: ISOSORBIDE MONONITRATE ER 30 MG TAB.ER.24H PO SCH (09:36)
[2023-12-04] MEDS: ASPIRIN 81 MG PO SCH (09:36)
[2023-12-04] MEDS: ATORVASTATIN 20 MG TAB PO SCH (09:36)
[2023-12-04] MEDS: DAPAGLIFLOZIN PROPANEDIOL 10 MG TABLET PO SCH (09:36)
[2023-12-04] MEDS: SPIRONOLACTONE 25 MG TAB PO SCH (09:36)
[2023-12-04] MEDS: hydrALAZINE HCL 50 MG TAB PO SCH ×2 (09:36→17:29)
[2023-12-04] MEDS: carvediloL 12.5 MG TAB PO SCH ×2 (09:36→17:28)
[2023-12-04] MEDS: FUROSEMIDE 40 MG TAB PO SCH (09:36)
[2023-12-04] MEDS: NYSTATIN 100,000 UNIT/GM POWD 15 GM TOPICAL SCH (09:37)
[2023-12-04 12:54] LABS: Glucose,Whole Blood 176 mg/dL (70-110)
[2023-12-04 13:32] VITALS: BP 156/63; RESP 19; TEMP 97.5
[2023-12-04 17:13] LABS: Glucose,Whole Blood 141 mg/dL (70-110)
[2023-12-05] MEDS ORDERED: PARoxetine 10 MG TAB PO SCH (09:00)
--- NOTE | 2023-12-05 10:41 | DS ---
DISCHARGE SUMMARY CHIEF COMPLAINT: Shortness of breath. HISTORY OF PRESENT ILLNESS AND PHYSICAL EXAM: Details of this lady's history and physical can be found in the initial workup. COURSE IN THE HOSPITAL: After admission, she was placed on bedrest, started intravenous fluids and treated again for her heart failure. However, after further evaluation, it seemed that this may have been more related to anxiety than heart failure. At that point, it was felt she could be discharged home on 8th on her usual medications in addition to Paxil 10 mg once a day and BuSpar 5 mg t.i.d. p.r.n. She will be seen in the office in several days. FINAL DIAGNOSES: 1. Shortness of breath. 2. Chronic congestive heart failure. 3. Anxiety. 4. Hypertension. 5. Diabetes. OPERATIONS: None. CONSULTATION: None. She is improved. DARLIN / RAMIRO: [id number] /
== END 2023-12-04 19:11 | disposition home or self-care (01) ==
LOC: EC 17:17 → 1SOBS 23:52 → 5NMEDONC 12-01 16:26
PROVIDERS: ADMIT Family Medicine; ATTEND Family Medicine
DX: I11.0 Hypertensive heart disease with heart failure (principal); I50.9 Heart failure, unspecified; E87.20 Acidosis, unspecified; E78.5 Hyperlipidemia, unspecified; E11.9 Type 2 diabetes mellitus without complications; F41.9 Anxiety disorder, unspecified; Z87.891 Personal history of nicotine dependence; Z79.84 Long term (current) use of oral hypoglycemic drugs; Z79.82 Long term (current) use of aspirin; Z79.4 Long term (current) use of insulin; Z79.899 Other long term (current) drug therapy; Z88.2 Allergy status to sulfonamides; Z20.822 Contact with and (suspected) exposure to COVID-19
CPT/HCPCS: 96376; 96361 ×3; 96372 ×4; 96374; 96375; 99285; 36415; 93005; 97116; 97530; 97162; 97166; 83880 ×2; 80053 ×2; 82009; 83605; 83735; 84100; 84484; 85025 ×2; 85610; 85730; 82272; 81003; 80143; 87636; 80179; 71046; G0378 ×5; G0480; J2270 ×2; J2405; 80320

== ENCOUNTER → 2024-08-05 | Outpatient (CLI) | payer MEDICARE ==
--- NOTE | 2024-08-05 16:08 | US ---
EXAMINATION TYPE: US carotid duplex BILAT DATE OF EXAM: 08/05/2024 COMPARISON: NONE CLINICAL INDICATION: Female, 89 years old with history of R09.89 Carotid bruit; Bruit per order. Prio r smoker. TECHNIQUE: Carotid duplex ultrasound examination. Indirect Doppler criteria was utilized. FINDINGS: EXAM MEASUREMENTS: RIGHT: Peak Systolic Velocity (PSV) cm/sec ----- Right CCA: 115.6 ----- Right ICA: 473.8 ----- Right ECA: 382.4 ICA/CCA ratio: 4.1 RIGHT: End Diastole cm/sec ----- Right CCA: 0.0 ----- Right ICA: 44.2 ----- Right ECA: 0.0 LEFT: Peak Systolic Velocity (PSV) cm/sec ----- Left CCA: 97.0 ----- Left ICA: 294.8 ----- Left ECA: 366.9 ICA/CCA ratio: 3.0 LEFT: End Diastole cm/sec ----- Left CCA: 11.2 ----- Left ICA: 34.6 ----- Left ECA: 0.0 VERTEBRALS (direction of flow): Right Vertebral: Antegrade Left Vertebral: Appearance of possible pre-subclavian steal waveform?-"bunny sign" appearance seen. Rhythm: Normal MANAGER UNDERWRITING NOTES: Shadowing plaque seen within bilateral bulbs. Elevated velocities within right I CA, right ECA, and right bulb. Elevated velocities within left ICA and left ECA. ICA/CCA ratio on the right was 4.1 and 3.0 on the left. IMPRESSION: 1. Large amount of the atherosclerotic plaque within the bilateral carotid bulbs. Greater than 70% stenosis to near occlusion involving the proximal right internal carotid artery. Approximately 50-69 % stenosis involving the proximal left internal carotid artery. 2. 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 Consider furt her evaluation with CTA. 3. High-grade stenosis involving the proximal bilateral ECA. Criteria for Assigning % of Stenosis / Diameter reduction (Estimation based on the indirect measurements of the internal carotid artery velocities (ICA PSV). 1. Normal (no stenosis)=ICA PSV < 125 cm/s: ratio < 2.0: ICA EDV<40 cm/s. 2. Less than 50% stenosis=ICA PSV < 125 cm/s: ratio < 2.0: ICA EDV<40 cm/s. 3. 50 to 69% stenosis=ICA PSV of 125 to 230 cm/s: ration 2.0 ? 4.0: ICA EDV 40-100 cm/s. 4. Greater than 70% stenosis to near occlusion= ICA PSV > 230 cm/s: ratio > 4.0: ICA EDV > 100 cm/s. 5. Near occlusion= ICA PSV velocities may be low or undetectable: variable ratio and ICA EDV. 6. Total occlusion=unable to detect flow.
--- NOTE | 2024-08-05 17:07 | CA ---
Transthoracic Echo Report Name: Anna Knight Age: 89 Gender: F : 1935 Exam Date: 08/05/2024 15:59 Exam Location: [facility] Ht (in): 60 Wt (lb): 177 Ordering Physician: Hawk Claros MD Attending/Referring Phys: Harlan CR Assistant Casino Shift Manager Heidi Atkinson RDCS Procedure CPT: Indications: R09.89 Carotid bruit Cardiac Hx: Technical Quality: Fair Contrast 1: Total Dose (mL): Contrast 2: Total Dose (mL): MEASUREMENTS (Male / Female) Normal Values 2D ECHO LV Diastolic Diameter PLAX 4.7 cm 4.2 - 5.9 / 3.9 - 5.3 cm LV Systolic Diameter PLAX 3.3 cm IVS Diastolic Thickness 1.1 cm 0.6 - 1.0 / 0.6 - 0.9 cm LVPW Diastolic Thickness 1.2 cm 0.6 - 1.0 / 0.6 - 0.9 cm LV Relative Wall Thickness 0.5 LVOT Diameter 1.9 cm LV Diastolic Volume MOD BP 114.6 cm??? 67 - 155 / 56 - 104 cm??? LV Systolic Volume MOD BP 48.1 cm??? 22 - 58 / 19 - 49 cm??? LV Ejection Fraction MOD BP 58.0 % >= 55 % LV Cardiac Index MOD BP 2085.6 cm???/min???m??? LV Diastolic Volume MOD 4C 106.4 cm??? LV Systolic Volume MOD 4C 40.7 cm??? LV Ejection Fraction MOD 4C 61.7 % LV Cardiac Index MOD 4C 2058.7 cm???/min???m??? LV Diastolic Length 4C 7.8 cm LV Systolic Length 4C 6.2 cm LV Diastolic Volume MOD 2C 111.8 cm??? LV Systolic Volume MOD 2C 48.3 cm??? LV Ejection Fraction MOD 2C 56.8 % LV Cardiac Index MOD 2C 1992.8 cm???/min???m??? LV Diastolic Length 2C 8.6 cm LV Systolic Length 2C 7.3 cm LA Volume 53.6 cm??? 18 - 58 / 22 - 52 cm??? LA Volume Index 28.5 cm???/m??? 16 - 28 cm???/m??? DOPPLER AV Peak Velocity 183.0 cm/s AV Peak Gradient 13.4 mmHg AV Mean Velocity 123.3 cm/s AV Mean Gradient 6.9 mmHg AV Velocity Time Integral 42.3 cm LVOT Peak Velocity 122.6 cm/s LVOT Peak Gradient 6.0 mmHg LVOT Velocity Time Integral 28.7 cm LVOT Stroke Volume 78.0 cm??? LVOT Stroke Volume Index 44.0 ml/m??? LVOT Cardiac Index 2444.2 cm???/min???m??? AV Area Cont Eq vti 1.8 cm??? AV Area Cont Eq pk 1.8 cm??? MV Peak Velocity 145.8 cm/s MV Peak Gradient 8.5 mmHg MV Mean Velocity 80.0 cm/s MV Mean Gradient 3.0 mmHg MV Velocity Time Integral 40.2 cm MV Area PHT 2.5 cm??? Mitral E Point Velocity 97.1 cm/s Mitral A Point Velocity 107.9 cm/s Mitral E to A Ratio 0.9 MV Deceleration Time 306.6 ms PV Peak Velocity 112.0 cm/s PV Peak Gradient 5.0 mmHg FINDINGS Left Ventricle Left ventricular ejection fraction is estimated at 55-60 %. Mildly increased septal wall thickness. Mildly increased posterior wall thickness. Mildly increased left ventricular diastolic volume. No obvious regional wall motion abnormalities. Right Ventricle Normal right ventricular size and function. Unable to estimate the right ventricular systolic pressure. Right Atrium Normal right atrial size. Left Atrium Mildly increased left atrial volume. Mitral Valve Mitral valve thickened. Mitral annular calcification. No evidence for mitral valve prolapse. Mild mitral stenosis. Mild mitral regurgitation. Aortic Valve Aortic valve not well visualized. No aortic stenosis. Trace aortic regurgitation. Tricuspid Valve Structurally normal tricuspid valve. No tricuspid stenosis. No tricuspid regurgitation. Pulmonic Valve Pulmonic valve not well visualized. No pulmonic stenosis. No pulmonic regurgitation. Pericardium No pericardial effusion. Aorta Aortic annulus normal. CONCLUSIONS Normal LV function Mitral annular calcification with mild mitral regurgitation Previewed by: Dr. Jerry Marley MD (Electronically Signed) Final Date: 05 August 2024 17:06
== END | disposition home or self-care (01) ==
LOC: RADUSWWP 15:06
PROVIDERS: ATTEND Family Medicine
DX: R09.89 Other specified symptoms and signs involving the circulatory and respiratory systems
CPT/HCPCS: 93306; 93880

== ENCOUNTER → 2024-10-17 | Outpatient (CLI) | payer MEDICARE ==
[2024-10-03 11:40] LABS: African American GFR (CKD) 29 (>60 ml/min/1.73 sqM); Blood Urea Nitrogen 52 mg/dL (7-17); Non-African American GFR(CKD) 25 (>60 ml/min/1.73 sqM)
--- NOTE | 2024-10-17 14:38 | CT ---
EXAMINATION TYPE: CT angio neck CT DLP: 283.1 mGycm, Automated exposure control for dose reduction was used. DATE OF EXAM: 10/17/2024 2:05 PM COMPARISON: Carotid ultrasound 08/05/2024. CLINICAL INDICATION:Female, 89 years old with history of I65.29 OCCLUSION STENOSIS; PHH, CAROTID STEN OSIS TECHNIQUE: Axially acquired helical CT angiogram of the neck was obtained with contrast utilizing 75 cc of [id number]-[id number] administered intravenously. Axial images are supplemented with 3D reconstructions wh ich were post-processed at an independent workstation. NASCET criteria used. FINDINGS: CTA NECK: Right Carotid System: The common carotid artery and external carotid artery are patent. Retropharyngeal course of the commo n carotid artery. Moderate to severe calcified plaque at the carotid bifurcation. High-grade stenosis involving the origin of the external carotid artery. Approximately 90 % stenosis of the origin of th e right internal carotid artery secondary to calcified plaque. The remaining portions of the internal carotid artery demonstrate normal size without significant narrowing. Left Carotid System: The common carotid artery and external carotid artery are patent. Retropharyngeal course of the commo n carotid artery. Moderate to severe calcified plaque at the carotid bifurcation. High-grade stenosis involving the origin external carotid artery. Approximately 80% stenosis at the origin of the left i nternal carotid artery secondary to calcified plaque. The remaining portions of the internal carotid artery demonstrate normal size without significant narrowing. Vertebral arteries are patent without evidence hemodynamically significant stenosis. There is a three-vessel aortic arch. Calcifications at the origins of the great vessels are patent. M oderate stenosis involving the proximal left subclavian artery secondary to calcified plaque. Multino dular thyroid gland. Dilated main pulmonary artery measured 3.5 cm which can be seen with pulmonary a rterial hypertension. Mild centrilobular emphysematous changes. Complete opacification of the right m astoid air cells with some opacification within the middle ear. Multilevel degenerative disc disease. IMPRESSION: 1. Approximately 90% stenosis at the origin of the right internal carotid artery secondary to calcifi ed plaque. 2. Approximate 80% stenosis at the origin of the left internal carotid artery secondary to calcified plaque. 3. High-grade stenosis at the origins of the bilateral external carotid arteries secondary to calcifi ed plaque. 4. Moderate stenosis involving the proximal left subclavian artery secondary to calcified plaque. 5. Complete opacification of the right mastoid air cells with some opacification within the middle ea r. May be seen with effusion and otitis interna with other etiologies such as cholesteatoma not exclu ded. Consider direct visualization. [facility], , 10/17/2024 2:36 PM
== END | disposition home or self-care (01) ==
LOC: RADCTMAIN 10-03 10:52
PROVIDERS: ATTEND Surgery
DX: I65.23 Occlusion and stenosis of bilateral carotid arteries (principal)
CPT/HCPCS: 70498; 82565; 84520

== ENCOUNTER → 2024-10-17 | Outpatient (CLI) | payer MEDICARE ==
[~2024-10-17] MED LIST: SODIUM CHLORIDE 0.9% 250 ML in EMPTY BAG 1 BAG IV PRN; SODIUM CHLORIDE 0.9% 500 ML 500 ML in EMPTY BAG 1 BAG IV PRN
[2024-10-17 08:48] VITALS: BP 186/63; PULSE 58; RESP 16; TEMP 97.8
[2024-10-17] MEDS: SODIUM CHLORIDE 0.9% 1,000 ML IV NR (08:49)
[2024-10-17 12:33] LABS: African American GFR (CKD) 34 (>60 ml/min/1.73 sqM); Blood Urea Nitrogen 50 mg/dL (7-17); Non-African American GFR(CKD) 30 (>60 ml/min/1.73 sqM)
== END ==
LOC: PROCWHC3 08:30
PROVIDERS: ATTEND Surgery
DX: E86.0 Dehydration (principal)
CPT/HCPCS: 82565; 84520; 96360; 96361